=== PATIENT | male | born 1995 | race Caucasian/White ===

== ENCOUNTER → 2017-07-22 | Outpatient (REF) | payer MEDICARE ==
[~2017-07-22] MED LIST: ACET-1966 PO; AMLO-96 PO; AMLO-99 PO; CALC-521 PO; CALC667T3 PO; CHOL500025 PO; CIN30PT PO; CYCL25CA8 PO; DARB40DI IJ; FOLI1CAP13 PO; FURO-47 PO; LISI-362 PO; LISI-374 PO; METO25TA93 PO; MULT-40; OMEP40CA48 PO; PRED-1 PO; SULF-198 PO; [UNRECOGNIZED DRUG - CODE] IJ
== END ==
LOC: ZZSENDIN 15:36
PROVIDERS: ATTEND Internal Medicine Nephrology
DX: R88.0 Cloudy (hemodialysis) (peritoneal) dialysis effluent (principal)
CPT/HCPCS: 87071; 87073; 87205; 89050

== ENCOUNTER 2017-09-10 13:58 | Emergency (ER) | payer MEDICARE ==
[2017-09-10] MEDS ORDERED: SEVE800T16 PO (14:25)
[2017-09-10] MEDS ORDERED: CARV25TA78 PO (14:25)
[2017-09-10] MEDS ORDERED: CYCL10TA29 PO (14:25)
[2017-09-10] MEDS ORDERED: CAL25 FT (14:25)
--- NOTE | 2017-09-10 14:47 | ER Report ---
History and Physical Time Seen By MD: 14:35 Hx. of Stated Complaint: PATIENT STATES THAT SUDDENLY TODAY HE STARTED FEELING NAUSEA AND LIGHT HEADED HPI/ROS CHIEF COMPLAINT: Lightheadedness, shortness of breath HISTORY OF PRESENT ILLNESS: 21-year-old male patient presents to emergency room with complaint of lightheadedness and shortness of breath. Patient states that he was coming back in town with his mother when he started not feeling well. His mother states he became very pale. He states that he was having a hard time getting a breath in. He states that he felt like he was going to pass out. He denies having any vomiting however he states that he has been nauseated. Patient states he is not taking any medication for this. Patient has a history of renal failure and mother wanted him evaluated as a result of these problems. Patient states he is feeling improved at this time. REVIEW OF SYSTEMS: Respiratory: As noted above. Cardiovascular: No chest pain, no palpitations. Gastrointestinal: As noted above Musculoskeletal: No back pain. Allergies: Coded Allergies: cyclobenzaprine (Verified Allergy, Severe, ANAPHALATIC, 09/10/17) Home Meds Reported Medications Sevelamer Carbonate (RENVELA) 800 Mg Tablet, 800 MG PO BID 09/10/17 Cyclobenzaprine Hcl (CYCLOBENZAPRINE HCL) 10 Mg Tablet, 5 MG PO TID, #9 TAB 09/10/17 Calcitriol (CALCITRIOL) 0.25 Mcg Cap, 0.25 MCG FT, CAP 09/10/17 Carvedilol (CARVEDILOL) 25 Mg Tablet, 25 MG PO BID, #10 TAB 09/10/17 Cinacalcet Hcl (SENSIPAR) 30 Mg Tablet, 30 MG PO DAILY 05/12/17 Amlodipine Besylate (AMLODIPINE BESYLATE) 10 Mg Tablet, 10 MG PO QHS, TAB 05/10/17 Lisinopril (LISINOPRIL) 10 Mg Tablet, 20 MG PO BID, TAB 03/10/17 Prednisone 10 Mg Tab (PREDNISONE 10 MG TAB) 10 Mg Tablet, 5 MG PO QDAY, TAB 12/23/16 Omeprazole (OMEPRAZOLE) 40 Mg Capsule.dr, 40 MG PO QDAY, CAP 12/23/16 Folic Acid/Vitamin B Comp W-C (NEPHROCAPS SOFTGEL) 1 Mg Capsule, 1 MG PO, CAPSULE 12/23/16 Cyclosporine, Modified (GENGRAF) 25 Mg Capsule, 75 MG PO BID, CAPSULE 12/23/16 Furosemide (FUROSEMIDE) 40 Mg Tablet, 2 TAB PO QDAY, TAB 12/23/16 Discontinued Reported Medications Calcium Acetate (CALCIUM ACETATE) 667 Mg Tablet, 667 MG PO TIDCF 04/07/17 Metoprolol Tartrate (METOPROLOL TARTRATE) 25 Mg Tablet, 25 MG PO BID, TAB 02/15/17 Sulfamethoxazole/Trimet 800-160 Mg Tab (BACTRIM DS TABLET) 1 Each Tablet, 0.5 TAB PO Q12H, TAB 12/23/16 Past Medical/Surgical History Patient has a past medical history of hypertension, reflux, renal failure, peritoneal dialysis. Patient has a surgical history of kidney transplants 2, tendon lengthening in both feet, left hip replacement. Reviewed Nurses Notes: Yes Hx Substance Use Disorder: No Hx Alcohol Use: No Constitutional Vital Sign - Last 24 Hours 09/10/17 09/10/17 09/10/17 09/10/17 14:09 14:09 14:28 14:30 Temp 98.2 Pulse 81 85 Resp 18 B/P (MAP) 125/80 (95) 125/80 131/82 (98) Pulse Ox 96 99 O2 Delivery Room Air 09/10/17 09/10/17 09/10/17 09/10/17 14:58 15:00 15:28 16:00 Pulse 89 85 B/P (MAP) 136/83 (100) 139/92 (108) Pulse Ox 95 09/10/17 16:03 Pulse 93 Pulse Ox 96 Physical Exam General Appearance: The patient is alert, has no immediate need for airway protection and no current signs of toxicity. Respiratory: Chest is non tender, lungs are coarse in the right lower lobe to auscultation. Cardiac: regular rate and rhythm Gastrointestinal: Abdomen is soft and non tender, no masses, bowel sounds normal. Musculoskeletal: Neck: Neck is supple and non tender. Extremities have full range of motion and are non tender. Skin: No rashes or lesions. DIFFERENTIAL DIAGNOSIS: After history and physical exam differential diagnosis was considered for pneumonia, bronchitis, upper respiratory infection, dehydration Medical Decision Making Data Points Result Diagram: 09/10/17 1512 09/10/17 1512 Laboratory Hematology Test 09/10/17 15:12 Red Blood Count 3.31 M/uL (4.00-5.60) Mean Corpuscular Volume 84.3 fL (80.0-96.0) Mean Corpuscular Hemoglobin 29.6 pg (26.0-33.0) Mean Corpuscular Hemoglobin Concent 35.2 g/dL (32.0-36.0) Red Cell Distribution Width 12.9 % (11.5-14.5) Mean Platelet Volume 7.1 fL (7.2-11.1) Neutrophils (%) (Auto) 79.0 % (39.4-72.5) Lymphocytes (%) (Auto) 11.2 % (17.6-49.6) Monocytes (%) (Auto) 7.4 % (4.1-12.4) Eosinophils (%) (Auto) 2.1 % (0.4-6.7) Basophils (%) (Auto) 0.3 % (0.3-1.4) Nucleated RBC Relative Count (auto) 0.0 /100WBC Neutrophils # (Auto) 9.3 K/uL (2.0-7.4) Lymphocytes # (Auto) 1.3 K/uL (1.3-3.6) Monocytes # (Auto) 0.9 K/uL (0.3-1.0) Eosinophils # (Auto) 0.2 K/uL (0.0-0.5) Basophils # (Auto) 0.0 K/uL (0.0-0.1) Nucleated RBC Absolute Count (auto) 0.00 K/uL Sodium Level 141 mmol/L (137-145) Potassium Level 3.9 mmol/L (3.5-5.0) Chloride Level 99 mmol/L (98-107) Carbon Dioxide Level 26 mmol/L (22-30) Blood Urea Nitrogen 51 mg/dl (9-21) Creatinine 8.20 mg/dl (0.66-1.25) Glomerular Filtration Rate Calc 8.2 Random Glucose 87 mg/dl (75-110) Calcium Level 8.2 mg/dl (8.4-10.2) Total Bilirubin 0.5 mg/dl (0.2-1.3) Aspartate Amino Transf (AST/SGOT) 17 U/L (0-35) Alanine Aminotransferase (ALT/SGPT) 26 U/L (0-56) Alkaline Phosphatase 176 U/L (0-126) Troponin I < 0.012 ng/ml Total Protein 7.0 gm/dl (6.3-8.2) Albumin 3.8 g/dl (3.5-5.0) Chemistry Test 09/10/17 15:12 White Blood Count 11.7 k/uL (4.5-11.0) Red Blood Count 3.31 M/uL (4.00-5.60) Hemoglobin 9.8 g/dL (14.0-18.0) Hematocrit 27.9 % (42.0-52.0) Mean Corpuscular Volume 84.3 fL (80.0-96.0) Mean Corpuscular Hemoglobin 29.6 pg (26.0-33.0) Mean Corpuscular Hemoglobin Concent 35.2 g/dL (32.0-36.0) Red Cell Distribution Width 12.9 % (11.5-14.5) Platelet Count 258 K/uL (150-450) Mean Platelet Volume 7.1 fL (7.2-11.1) Neutrophils (%) (Auto) 79.0 % (39.4-72.5) Lymphocytes (%) (Auto) 11.2 % (17.6-49.6) Monocytes (%) (Auto) 7.4 % (4.1-12.4) Eosinophils (%) (Auto) 2.1 % (0.4-6.7) Basophils (%) (Auto) 0.3 % (0.3-1.4) Nucleated RBC Relative Count (auto) 0.0 /100WBC Neutrophils # (Auto) 9.3 K/uL (2.0-7.4) Lymphocytes # (Auto) 1.3 K/uL (1.3-3.6) Monocytes # (Auto) 0.9 K/uL (0.3-1.0) Eosinophils # (Auto) 0.2 K/uL (0.0-0.5) Basophils # (Auto) 0.0 K/uL (0.0-0.1) Nucleated RBC Absolute Count (auto) 0.00 K/uL Glomerular Filtration Rate Calc 8.2 Calcium Level 8.2 mg/dl (8.4-10.2) Total Bilirubin 0.5 mg/dl (0.2-1.3) Aspartate Amino Transf (AST/SGOT) 17 U/L (0-35) Alanine Aminotransferase (ALT/SGPT) 26 U/L (0-56) Alkaline Phosphatase 176 U/L (0-126) Troponin I < 0.012 ng/ml Total Protein 7.0 gm/dl (6.3-8.2) Albumin 3.8 g/dl (3.5-5.0) EKG/Imaging EKG Interpretation 12 lead EKG: Rhythm: normal sinus rhythm with a ventricular rate of 83 bpm Cougar: normal QRS: normal ST segments: normal Imaging Exam type: CHEST PA AND LAT History: shortness of breath Comparison: February 22, 2017. Findings: The lungs appear free of acute effusions infiltrates or edema. There is no evidence of a pneumothorax or pneumomediastinum. Cardiac silhouette is normal in size. IMPRESSION: 1. No acute cardiopulmonary process is seen Report Dictated By: Olga Heredia MD at 09/10/2017 3:50 PM Report E-Signed By: Olga Heredia MD at 09/10/2017 3:51 PM ED Course/Re-evaluation ED Course Patient was admitted to an exam room, history and physical were obtained. Differential diagnoses were considered. On examination patient had some rhonchi in the right lower lobe. A CBC, CMP, chest x-ray were done. The lab results were unremarkable except the patient did have a creatinine of 8 with a GFR of 8 as well. Patient has known kidney disease I believe that secondary to that. Patient does have a fluid restriction of 3200 cc per day. Today he is only had 240 cc and has urinated as well. Looking at his BUN which was up from 31 2 months ago to 55 today I believe the patient is slightly dehydrated. I do believe that could be contributing to the patient's lightheadedness. I discussed this with the patient and his mother. The chest x-ray was unremarkable and we discussed the results with him. We'll go ahead and discharge him home. I believe he likely has upper respiratory infection which is causing the rhonchi in the right lower lobe. We will go ahead and treat that conservatively with rest and fluid. I would like him to be closer to his fluid restriction every day. Patient and his mother verbalized understanding and agreement with plan. Decision to Disposition Date: Sep 10, 2017 Decision to Disposition Time: 16:09 Depart Departure Latest Vital Signs Vital Signs Date Time Temp Pulse Resp B/P (MAP) Pulse Ox O2 Delivery O2 Flow Rate FiO2 09/10/17 16:03 93 96 09/10/17 16:00 139/92 (108) 09/10/17 14:09 98.2 18 Room Air Impression: Primary Impression: Upper respiratory infection Additional Impression: Dehydration Condition: Improved Disposition: HOME OR SELF-CARE Patient Instructions: Dehydration (ED) Additional Instructions: Get plenty of rest. Try to stay closer to the 3200cc fluid restriction, as we talked about today you have drank considerably less than that. Continue with normal medications. Return to the ER if condition worsens. Follow up with your primary care provider in the next 2 weeks. Problem Qualifiers Primary Impression: Upper respiratory infection URI type: unspecified viral URI Qualified Codes: J06.9 - Acute upper respiratory infection, unspecified JEAN BAKER Sep 10, 2017 14:47
[2017-09-10 15:23] LABS: PLATELET COUNT, AUTOMATED 258 K/uL (150-450)
--- NOTE | 2017-09-10 15:26 | EKG ---
FACILITY: [facility] [place] PATIENT NAME: JEAN PIERRE STRONG : [id number] MR: [id number] V: [id number] EXAM DATE: ORDERING PHYSICIAN: JEAN BAKER TECHNOLOGIST: EBONI Hall Reason : SOB Blood Pressure : / mmHG Vent. Rate : 083 BPM Atrial Rate : 083 BPM P-R Int : 152 ms QRS Dur : 088 ms QT Int : 396 ms P-R-T Axes : 074 080 086 degrees QTc Int : 465 ms Normal sinus rhythm Normal ECG When compared with ECG of 25-FEB-2017 14:07, No significant change was found Confirmed by TOMAS SHEIKH ([id number]) on 09/10/2017 11:24:35 PM Referred By: JEAN Confirmed By:TOMAS SHEIKH
--- NOTE | 2017-09-10 15:55 | RADIOLOGY IMAGING REPORT ---
FACILITY: [facility] PATIENT NAME: Paresh Barrera : 1995 MR: [id number] V: [id number] EXAM DATE: ORDERING PHYSICIAN: JEAN BAKER TECHNOLOGIST: Location: [facility] Patient: Paresh Barrera : 1995 Visit/Account:[id number] Date of Sevice: 09/10/2017 Exam type: CHEST PA AND LAT History: shortness of breath Comparison: February 22, 2017. Findings: The lungs appear free of acute effusions infiltrates or edema. There is no evidence of a pneumothora x or pneumomediastinum. Cardiac silhouette is normal in size. IMPRESSION: 1. No acute cardiopulmonary process is seen Report Dictated By: Olga Heredia MD at 09/10/2017 3:50 PM Report E-Signed By: Olga Heredia MD at 09/10/2017 3:51 PM [id number]
[2017-09-10 16:00] VITALS: BP 139/92
== END 2017-09-10 16:17 | disposition home or self-care (01) ==
LOC: ER 13:58
DX: J06.9 Acute upper respiratory infection, unspecified (principal); E86.0 Dehydration
CPT/HCPCS: 36415; 71046; 82040; 82247; 82310; 82374; 82435; 82565; 82947; 84075; 84132; 84155; 84295; 84450; 84460; 84484; 84520; 85025; 93005; 99283

== ENCOUNTER → 2017-09-23 | Outpatient (REF) | payer MEDICARE ==
[~2017-09-23] MED LIST changes: +CAL25 FT; +CARV25TA78 PO; +CYCL10TA29 PO; +SEVE800T16 PO
[2017-09-23 13:18] LABS: PLATELET COUNT, AUTOMATED 342 K/uL (150-450)
== END ==
PROVIDERS: ATTEND Nurse Practitioner Family
DX: R50.9 Fever, unspecified (principal)
CPT/HCPCS: 82040; 82247; 82310; 82374; 82435; 82565; 82947; 84075; 84132; 84155; 84295; 84450; 84460; 84520; 85025

== ENCOUNTER → 2017-09-23 | Outpatient (REF) | payer MEDICARE | LOC: ZZSENDIN 20:54 | PROVIDERS: ATTEND Internal Medicine | DX: R50.9 Fever, unspecified (principal) | CPT/HCPCS: 87071; 87205; 89050 ==

== ENCOUNTER 2018-01-11 03:06 | Emergency (ER) | payer MEDICARE ==
--- NOTE | 2018-01-11 03:10 | ER Report ---
History and Physical Time Seen By MD: 03:09 HPI/ROS CHIEF COMPLAINT: Fever, sore throat, vomiting, diarrhea HISTORY OF PRESENT ILLNESS: 22-year-old male with a history of chronic renal failure status post renal transplant failure 2. Patient's currently on peritoneal dialysis. He began feeling ill yesterday morning with a sore throat , chills and fever. His mom brought him in tonight with vomiting and diarrhea on top of his sore throat. He appears very dehydrated. Mom's been doing his peritoneal dialysis catheters. She states the fluid has not been cloudy or noted color change. Patient notes some shortness of breath, but no sputum production or cough. Patient and his mother deny exposure to ill contacts or recent antibiotic use. REVIEW OF SYSTEMS: Respiratory: No cough, no dyspnea. Cardiovascular: No chest pain, no palpitations. Gastrointestinal: As above Musculoskeletal: No back pain. Allergies: Coded Allergies: cycloserine (Verified Allergy, Severe, anaphlaxsis, 01/11/18) Home Meds Active Scripts Ondansetron (ZOFRAN ODT) 4 Mg Tab.rapdis, 4 MG PO every 6 hours Y for NAUSEA/ VOMITING, #15 TAB TAKE 1 TABLET BY MOUTH EVERY 12 HOURS Prov:KVNG DAS DO 01/11/18 Amoxicillin/Potassium Clav (AMOX TR-K CLV 400-57/5 SUSP) 400 Mg/5 Ml Susp.recon , 800 MG PO Q12H for Strep pharyngitis, #200 ML Prov:KVNG DAS DO 01/11/18 Reported Medications Sevelamer Carbonate (RENVELA) 800 Mg Tablet, 800 MG PO BID 09/10/17 Cyclobenzaprine Hcl (CYCLOBENZAPRINE HCL) 10 Mg Tablet, 5 MG PO TID, #9 TAB 09/10/17 Calcitriol (CALCITRIOL) 0.25 Mcg Cap, 0.25 MCG FT, CAP 09/10/17 Carvedilol (CARVEDILOL) 25 Mg Tablet, 25 MG PO BID, #10 TAB 09/10/17 Cinacalcet Hcl (SENSIPAR) 30 Mg Tablet, 30 MG PO DAILY 05/12/17 Amlodipine Besylate (AMLODIPINE BESYLATE) 10 Mg Tablet, 10 MG PO QHS, TAB 05/10/17 Lisinopril (LISINOPRIL) 10 Mg Tablet, 20 MG PO BID, TAB 03/10/17 Prednisone 10 Mg Tab (PREDNISONE 10 MG TAB) 10 Mg Tablet, 5 MG PO QDAY, TAB 12/23/16 Omeprazole (OMEPRAZOLE) 40 Mg Capsule.dr, 40 MG PO QDAY, CAP 12/23/16 Folic Acid/Vitamin B Comp W-C (NEPHROCAPS SOFTGEL) 1 Mg Capsule, 1 MG PO, CAPSULE 12/23/16 Cyclosporine, Modified (GENGRAF) 25 Mg Capsule, 75 MG PO BID, CAPSULE 12/23/16 Furosemide (FUROSEMIDE) 40 Mg Tablet, 2 TAB PO QDAY, TAB 12/23/16 Reviewed Nurses Notes: Yes Old Medical Records Reviewed: Yes Hx Substance Use Disorder: No Hx Alcohol Use: No Constitutional Vital Sign - Last 24 Hours 01/11/18 01/11/18 01/11/18 01/11/18 03:10 03:36 03:51 04:00 Temp 100.5 Pulse 111 ??? 108 Resp 24 27 B/P (MAP) 128/86 130/80 (97) Pulse Ox 92 94 93 O2 Delivery Room Air 01/11/18 01/11/18 01/11/18 01/11/18 04:06 04:21 04:30 04:36 Pulse 110 112 113 Resp 10 10 9 B/P (MAP) 129/82 (98) Pulse Ox 93 94 90 01/11/18 01/11/18 01/11/18 01/11/18 04:51 05:00 05:05 05:10 Pulse 118 114 113 Resp 16 27 B/P (MAP) 138/87 (104) Pulse Ox 94 96 01/11/18 05:22 Temp 100.1 Physical Exam General Appearance: The patient is alert, has no immediate need for airway protection and no current signs of toxicity. Vital signs stable, 100.5, pulse ox normal HEENT: Pupils equal and round no injection. TMs normal, oropharynx with moderate erythema, no exudate, mucous membranes are dry Respiratory: Chest is non tender, lungs are clear to auscultation. No wheezing or rails Cardiac: regular rate and rhythm, no murmur Gastrointestinal: Abdomen is soft and non tender, no masses, bowel sounds normal. Musculoskeletal: Neck: Neck is supple and non tender. Extremities have full range of motion and are non tender. Skin: No rashes or lesions. DIFFERENTIAL DIAGNOSIS: After history and physical exam differential diagnosis was considered for adult fever including but not limited to viral syndromes including influenza, urinary tract infection, pneumonia and sepsis. Medical Decision Making Data Points Result Diagram: 01/11/18 0323 01/11/18 0323 Laboratory Hematology Test 01/11/18 03:23 Red Blood Count 3.36 M/uL (4.00-5.60) Mean Corpuscular Volume 83.3 fL (80.0-96.0) Mean Corpuscular Hemoglobin 29.2 pg (26.0-33.0) Mean Corpuscular Hemoglobin Concent 35.1 g/dL (32.0-36.0) Red Cell Distribution Width 15.2 % (11.5-14.5) Mean Platelet Volume 6.7 fL (7.2-11.1) Neutrophils (%) (Auto) % (39.4-72.5) Lymphocytes (%) (Auto) % (17.6-49.6) Monocytes (%) (Auto) % (4.1-12.4) Eosinophils (%) (Auto) % (0.4-6.7) Basophils (%) (Auto) % (0.3-1.4) Nucleated RBC Relative Count (auto) /100WBC Neutrophils # (Auto) K/uL (2.0-7.4) Lymphocytes # (Auto) K/uL (1.3-3.6) Monocytes # (Auto) K/uL (0.3-1.0) Eosinophils # (Auto) K/uL (0.0-0.5) Basophils # (Auto) K/uL (0.0-0.1) Nucleated RBC Absolute Count (auto) K/uL Neutrophils % (Manual) 19 % (39.4-72.5) Band Neutrophils % 72 % Lymphocytes % (Manual) 2 % (17.6-49.6) Monocytes % (Manual) 5 % (4.1-12.4) Eosinophils % (Manual) 1 % (0.4-6.7) Basophils % (Manual) 0 % (0.3-1.4) Metamyelocytes % 1 % Differential Comment Polychromasia 1+ Peripheral Blood Smear Yes Y/N Erythrocyte Sedimentation Rate 12 mm/HOUR (0-15) Sodium Level 139 mmol/L (137-145) Potassium Level 3.5 mmol/L (3.5-5.0) Chloride Level 98 mmol/L (98-107) Carbon Dioxide Level 23 mmol/L (22-30) Blood Urea Nitrogen 54 mg/dl (9-21) Creatinine 10.40 mg/dl (0.66-1.25) Glomerular Filtration Rate Calc 6.2 Random Glucose 87 mg/dl (75-110) Lactate 0.7 mmol/L (0.7-2.1) Calcium Level 8.5 mg/dl (8.4-10.2) Total Bilirubin 0.8 mg/dl (0.2-1.3) Aspartate Amino Transf (AST/SGOT) 15 U/L (0-35) Alanine Aminotransferase (ALT/SGPT) 23 U/L (0-56) Alkaline Phosphatase 81 U/L (0-126) C-Reactive Protein 4.7 mg/dl (<1.0) Total Protein 6.0 g/dl (6.3-8.2) Albumin 3.4 g/dl (3.5-5.0) Group A Streptococcus Screen Positive (NEGATIVE) Chemistry Test 01/11/18 03:23 White Blood Count 22.4 k/uL (4.5-11.0) Red Blood Count 3.36 M/uL (4.00-5.60) Hemoglobin 9.8 g/dL (14.0-18.0) Hematocrit 28.0 % (42.0-52.0) Mean Corpuscular Volume 83.3 fL (80.0-96.0) Mean Corpuscular Hemoglobin 29.2 pg (26.0-33.0) Mean Corpuscular Hemoglobin Concent 35.1 g/dL (32.0-36.0) Red Cell Distribution Width 15.2 % (11.5-14.5) Platelet Count 295 K/uL (150-450) Mean Platelet Volume 6.7 fL (7.2-11.1) Neutrophils (%) (Auto) % (39.4-72.5) Lymphocytes (%) (Auto) % (17.6-49.6) Monocytes (%) (Auto) % (4.1-12.4) Eosinophils (%) (Auto) % (0.4-6.7) Basophils (%) (Auto) % (0.3-1.4) Nucleated RBC Relative Count (auto) /100WBC Neutrophils # (Auto) K/uL (2.0-7.4) Lymphocytes # (Auto) K/uL (1.3-3.6) Monocytes # (Auto) K/uL (0.3-1.0) Eosinophils # (Auto) K/uL (0.0-0.5) Basophils # (Auto) K/uL (0.0-0.1) Nucleated RBC Absolute Count (auto) K/uL Neutrophils % (Manual) 19 % (39.4-72.5) Band Neutrophils % 72 % Lymphocytes % (Manual) 2 % (17.6-49.6) Monocytes % (Manual) 5 % (4.1-12.4) Eosinophils % (Manual) 1 % (0.4-6.7) Basophils % (Manual) 0 % (0.3-1.4) Metamyelocytes % 1 % Differential Comment Polychromasia 1+ Peripheral Blood Smear Yes Y/N Erythrocyte Sedimentation Rate 12 mm/HOUR (0-15) Glomerular Filtration Rate Calc 6.2 Lactate 0.7 mmol/L (0.7-2.1) Calcium Level 8.5 mg/dl (8.4-10.2) Total Bilirubin 0.8 mg/dl (0.2-1.3) Aspartate Amino Transf (AST/SGOT) 15 U/L (0-35) Alanine Aminotransferase (ALT/SGPT) 23 U/L (0-56) Alkaline Phosphatase 81 U/L (0-126) C-Reactive Protein 4.7 mg/dl (<1.0) Total Protein 6.0 g/dl (6.3-8.2) Albumin 3.4 g/dl (3.5-5.0) Group A Streptococcus Screen Positive (NEGATIVE) Microbiology Microbiology Date/Time Source Procedure Growth Status 01/11/18 04:08 Blood Peripheral Draw Blood Culture - Preliminary NO GROWTH SO FAR, SET LATE. REINCUBATED Resulted 01/11/18 03:23 Blood Peripheral Draw Blood Culture - Preliminary NO GROWTH SO FAR, SET LATE. REINCUBATED Resulted ED Course/Re-evaluation Clinical Indication for ER IV: Hydration, IV Access ED Course Patient was admitted to an examination room. H&P was done. The differential diagnosis was considered. On clinical examination. Patient has a benign nonsurgical abdomen. His catheter site is without erythema or discharge. He's had a sore throat. His rapid strep is positive. His white blood cell counts 22 ,000 with 72, bands. He's pancultured, but is unable to produce urine. He does still make some urine. We are unable to obtain peritoneal fluid. I do not think he has peritoneal infection. He'll be treated with Augmentin for strep pharyngitis. He is started on Rocephin 1 g initially. Mom and patient are advised to follow-up with their doc if unimproved in 2-3 days. They're cautioned return to the ER for any worsening Decision to Disposition Date: Jan 11, 2018 Decision to Disposition Time: 04:44 Depart Departure Latest Vital Signs Vital Signs Date Time Temp Pulse Resp B/P (MAP) Pulse Ox O2 Delivery O2 Flow Rate FiO2 01/11/18 05:22 100.1 01/11/18 05:10 113 01/11/18 05:05 27 96 01/11/18 05:00 138/87 (104) 01/11/18 03:10 Room Air Impression: Primary Impression: Strep pharyngitis Additional Impressions: Vomiting and diarrhea Dehydration Renal failure treated with peritoneal dialysis Condition: Improved Disposition: HOME OR SELF-CARE New Scripts Ondansetron (ZOFRAN ODT) 4 Mg Tab.rapdis 4 MG PO every 6 hours Y for NAUSEA/VOMITING, #15 TAB TAKE 1 TABLET BY MOUTH EVERY 12 HOURS Prov: KVNG DAS DO 01/11/18 Amoxicillin/Potassium Clav (AMOX TR-K CLV 400-57/5 SUSP) 400 Mg/5 Ml Susp.recon 800 MG PO Q12H for Strep pharyngitis, #200 ML Prov: KVNG DAS DO 01/11/18 Patient Instructions: Strep Throat (ED) Additional Instructions: Follow-up with your doctors if unimproved in 2-3 days Turn to the ER for any worsening Problem Qualifiers KVNG DAS DO Jan 11, 2018 03:10
[2018-01-11] MEDS ORDERED: NS(*) 0.9% 1000 ML BAG 1,000 ML IV ONE (03:18)
[2018-01-11] MEDS ORDERED: ONDANSETRON 4 MG/2 ML VIAL IVP ONE (03:20)
[2018-01-11 03:39] LABS: PLATELET COUNT, AUTOMATED 295 K/uL (150-450)
--- NOTE | 2018-01-11 03:52 | RADIOLOGY IMAGING REPORT ---
FACILITY: [facility] PATIENT NAME: Paresh Barrera : 1995 MR: [id number] V: [id number] EXAM DATE: ORDERING PHYSICIAN: KVNG DAS TECHNOLOGIST: Location: [facility] [place] Patient: Paresh Barrera : 1995 Visit/Account:[id number] Date of Sevice: 01/11/2018 AP CHEST 01/11/2018 3:18 AM. INDICATION: FEVER COMPARISON: 09/10/2017. FINDINGS: Lungs are well-expanded. There is no consolidation. No pleural effusion or pneumothorax. Heart size i s normal. Mild rightward curvature of the thoracic spine. IMPRESSION: No acute abnormality.. Report Dictated By: Maxwell Nayak MD at 01/11/2018 3:47 AM Report E-Signed By: Maxwell Nayak MD at 01/11/2018 3:49 AM WSN:[id number]
[2018-01-11] MEDS ORDERED: cefTRIAXone(*) 1 GM VIAL 1 GM in NS(*) 0.9% 100 ML ADDVANT BAG 100 ML IVPB ONE (04:35)
[2018-01-11] MEDS ORDERED: ONDA4TAB PO (04:49)
[2018-01-11] MEDS ORDERED: AMOX400S72 PO (04:49)
[2018-01-11] MEDS ORDERED: NS(*) 0.9% 500 ML BAG 500 ML IV ONE (04:50)
[2018-01-11 05:00] VITALS: BP 138/87
== END 2018-01-11 05:27 | disposition home or self-care (01) ==
LOC: ER 03:20
DX: J02.0 Streptococcal pharyngitis (principal); E86.0 Dehydration; R11.10 Vomiting, unspecified; R19.7 Diarrhea, unspecified; N19 Unspecified kidney failure
CPT/HCPCS: 71045; 83605; 85025; 85651; 86140; 87040; 87081; 87880; 96365; 96375; 99283; J0696; J2405; J7030; J7040; J7050; 82040; 82247; 82310; 82374; 82435; 82565; 82947; 84075; 84132; 84155; 84295; 84450; 84460; 84520

== ENCOUNTER → 2018-02-08 | Outpatient (REF) | payer MEDICARE, MEDICAID ==
[~2018-02-08] MED LIST changes: +AMOX400S72 PO; +ONDA4TAB PO
[2018-02-08 13:29] LABS: PLATELET COUNT, AUTOMATED 379 K/uL (150-450)
== END ==
LOC: ZZSENDIN 13:18
PROVIDERS: ATTEND Family Medicine
DX: N18.5 Chronic kidney disease, stage 5 (principal)
CPT/HCPCS: 85025

== ENCOUNTER → 2018-02-08 | Outpatient (CLI) | payer MEDICARE, MEDICAID | LOC: LAB 21:24 | PROVIDERS: ATTEND Internal Medicine | DX: R10.9 Unspecified abdominal pain (principal) | CPT/HCPCS: 87071; 87073; 87205; 89050 ==

== ENCOUNTER → 2018-02-09 | Outpatient (REF) | payer MEDICARE, MEDICAID ==
[2018-02-09 14:46] LABS: PLATELET COUNT, AUTOMATED 332 K/uL (150-450)
== END ==
LOC: ZZSENDIN 14:34
PROVIDERS: ATTEND Physician Assistant Medical
DX: N18.5 Chronic kidney disease, stage 5 (principal)
CPT/HCPCS: 82728; 85025

== ENCOUNTER 2018-02-20 16:04 | Emergency (ER) | payer MEDICARE, MEDICAID ==
[~2018-02-20 16:04] MED LIST changes: -CAL25 FT; +CAL25 PO; +TIZA2CAP3 PO; +VANC250C11 PO
[2018-02-20] MEDS ORDERED: KETOROLAC 30 MG/ML VIAL IVP ONE (17:00)
[2018-02-20] MEDS ORDERED: NS(*) 0.9% 1000 ML BAG 1,000 ML IV ONE (17:00)
[2018-02-20 17:22] LABS: PLATELET COUNT, AUTOMATED 231 K/uL (150-450)
--- NOTE | 2018-02-20 17:59 | ER Report ---
History and Physical Time Seen By MD: 17:57 Hx. of Stated Complaint: RLQ PAIN SINCE WEDNESDAY, DENIES N/V & FEVERS, PT WAS RECENTLY IN HOSPITAL IN [place] WITH C.DIFF (AMONG MANY OTHER DIAGNOSES). HPI/ROS CHIEF COMPLAINT: Right lower quadrant abdominal pain HISTORY OF PRESENT ILLNESS: Patient is a 22-year-old male here with complaints of right lower quadrant abdominal pain in the setting of peritoneal dialysis. Patient reports that since said intermittent colicky abdominal pain which has worsened over the course. Patient is a history of dystonia and a recent history of C. difficile colitis requiring hospitalization. Patient has been passing bowel movements without issue. He reports that he does not produce urine and requires peritoneal dialysis nightly. Patient is afebrile, hemodynamically stable in no acute distress. Denies recent fevers, shortness breath, chest pain, nausea, vomiting, diarrhea. Of note, patient is immune compromised on prednisone, cyclosporine, s/p renal transplant [facility] (original transplant was performed in [place]). REVIEW OF SYSTEMS: Constitutional: No fever, no chills. Eyes: No discharge. ENT: No sore throat. Cardiovascular: No chest pain, no palpitations. Respiratory: No cough, no shortness of breath. Gastrointestinal: + RLQ abdominal pain, no vomiting. Genitourinary: No hematuria. Musculoskeletal: No back pain. Skin: No rashes. Neurological: No headache. Allergies: Coded Allergies: cycloserine (Verified Allergy, Severe, anaphlaxsis, 02/20/18) ceftazidime (Unverified Allergy, Mild, Rash, 02/20/18) Uncoded Allergies: live vaccines (Allergy, Unknown, 02/16/18) Home Meds Active Scripts Vancomycin Hcl (VANCOMYCIN HCL) 250 Mg Capsule, 250 MG PO QID for 14 Days, #56 CAPSULE Prov:GRAY SMITH DO 02/20/18 Ondansetron (ZOFRAN ODT) 4 Mg Tab.rapdis, 4 MG PO every 6 hours Y for NAUSEA/ VOMITING, #15 TAB TAKE 1 TABLET BY MOUTH EVERY 12 HOURS Prov:KVNG DAS DO 01/11/18 Reported Medications Tizanidine Hcl (TIZANIDINE HCL) 2 Mg Capsule, 2 MG PO Q6H Y for prn, CAPSULE 02/16/18 Vancomycin HCl (Vancocin HCl) 250 Mg Capsule, 500 MG PO EVERY 3RD DAY 02/16/18 Sevelamer Carbonate (RENVELA) 800 Mg Tablet, 2400 MG PO TID 09/10/17 Calcitriol (CALCITRIOL) 0.25 Mcg Cap, 0.25 MCG PO BID, CAP 09/10/17 Prednisone 10 Mg Tab (PREDNISONE 10 MG TAB) 10 Mg Tablet, 5 MG PO QDAY, TAB 12/23/16 Omeprazole (OMEPRAZOLE) 40 Mg Capsule.dr, 40 MG PO QDAY, CAP 12/23/16 Folic Acid/Vitamin B Comp W-C (NEPHROCAPS SOFTGEL) 1 Mg Capsule, 1 MG PO, CAPSULE 12/23/16 Cyclosporine, Modified (GENGRAF) 25 Mg Capsule, 75 MG PO BID, CAPSULE 12/23/16 Discontinued Reported Medications Cyclobenzaprine Hcl (CYCLOBENZAPRINE HCL) 10 Mg Tablet, 5 MG PO TID, #9 TAB 09/10/17 Carvedilol (CARVEDILOL) 25 Mg Tablet, 25 MG PO BID, #10 TAB 09/10/17 Cinacalcet Hcl (SENSIPAR) 30 Mg Tablet, 30 MG PO DAILY 05/12/17 Amlodipine Besylate (AMLODIPINE BESYLATE) 10 Mg Tablet, 10 MG PO QHS, TAB 05/10/17 Lisinopril (LISINOPRIL) 10 Mg Tablet, 20 MG PO BID, TAB 03/10/17 Furosemide (FUROSEMIDE) 40 Mg Tablet, 2 TAB PO QDAY, TAB 12/23/16 Discontinued Scripts Amoxicillin/Potassium Clav (AMOX TR-K CLV 400-57/5 SUSP) 400 Mg/5 Ml Susp.recon , 800 MG PO Q12H for Strep pharyngitis, #200 ML Prov:KVNG DAS DO 01/11/18 Smoking Status: Never Smoker Hx Substance Use Disorder: No Hx Alcohol Use: No Constitutional Vital Sign - Last 24 Hours 02/20/18 02/20/18 02/20/18 02/20/18 16:15 16:15 16:30 16:45 Temp 98.9 Pulse 120 112 107 Resp 12 B/P (MAP) 148/103 (118) 148/103 138/100 (113) Pulse Ox 91 89 94 O2 Delivery Room Air 02/20/18 02/20/18 02/20/18 02/20/18 17:00 17:15 17:30 18:00 Pulse 122 145 110 114 B/P (MAP) 134/99 (111) 155/104 (121) 153/106 (122) Pulse Ox 94 98 88 91 02/20/18 02/20/18 02/20/18 02/20/18 18:15 18:30 18:45 19:00 Pulse 116 140 121 119 B/P (MAP) 149/119 (129) 141/107 (118) Pulse Ox 91 88 92 91 02/20/18 02/20/18 02/20/18 02/20/18 19:15 19:30 19:45 20:00 Pulse 114 116 117 120 B/P (MAP) 151/107 (122) 158/109 (125) Pulse Ox 94 92 92 93 02/20/18 02/20/18 02/20/18 02/20/18 20:15 20:30 20:45 20:53 Pulse 123 119 117 B/P (MAP) 162/104 (123) 158/96 (116) Pulse Ox 92 90 91 Intake and Output 02/20/18 02/20/18 02/21/18 15:00 23:00 07:00 Intake Total 1100 ml Balance 1100 ml Physical Exam General Appearance: The patient is alert, has no immediate need for airway protection and no signs of toxicity. No acute distress Eyes: Pupils equal and round no pallor or injection. ENT, Mouth: Mucous membranes are moist. Respiratory: There are no retractions, lungs are clear to auscultation. Cardiovascular: Regular rate and rhythm. Gastrointestinal: Abdomen is soft and + TTP RLQ, no masses, bowel sounds normal. Neurological: No focal neurological deficits Skin: Warm and dry, no rashes. Musculoskeletal: Neck is supple non tender. Extremities are nontender, nonswollen and have full range of motion. DIFFERENTIAL DIAGNOSIS: After history and physical exam differential diagnosis was considered for abdominal pain including but not limited to appendicitis, cholecystitis, gastritis and urinary tract infection, colitis, perforation Medical Decision Making Data Points Result Diagram: 02/20/18 1715 02/20/18 1715 Laboratory Hematology Test 02/20/18 17:15 Red Blood Count 3.30 M/uL (4.00-5.60) Mean Corpuscular Volume 91.8 fL (80.0-96.0) Mean Corpuscular Hemoglobin 31.6 pg (26.0-33.0) Mean Corpuscular Hemoglobin Concent 34.5 g/dL (32.0-36.0) Red Cell Distribution Width 18.7 % (11.5-14.5) Mean Platelet Volume 6.4 fL (7.2-11.1) Neutrophils (%) (Auto) 76.7 % (39.4-72.5) Lymphocytes (%) (Auto) 12.4 % (17.6-49.6) Monocytes (%) (Auto) 7.6 % (4.1-12.4) Eosinophils (%) (Auto) 1.5 % (0.4-6.7) Basophils (%) (Auto) 1.8 % (0.3-1.4) Nucleated RBC Relative Count (auto) 0.0 /100WBC Neutrophils # (Auto) 8.6 K/uL (2.0-7.4) Lymphocytes # (Auto) 1.4 K/uL (1.3-3.6) Monocytes # (Auto) 0.9 K/uL (0.3-1.0) Eosinophils # (Auto) 0.2 K/uL (0.0-0.5) Basophils # (Auto) 0.2 K/uL (0.0-0.1) Nucleated RBC Absolute Count (auto) 0.00 K/uL Sodium Level 134 mmol/L (137-145) Potassium Level 4.4 mmol/L (3.5-5.0) Chloride Level 98 mmol/L (98-107) Carbon Dioxide Level 29 mmol/L (22-30) Blood Urea Nitrogen 55 mg/dl (9-21) Creatinine 9.70 mg/dl (0.66-1.25) Glomerular Filtration Rate Calc 6.7 Random Glucose 92 mg/dl (75-110) Calcium Level 8.1 mg/dl (8.4-10.2) Total Bilirubin 0.4 mg/dl (0.2-1.3) Aspartate Amino Transf (AST/SGOT) 26 U/L (0-35) Alanine Aminotransferase (ALT/SGPT) 28 U/L (0-56) Alkaline Phosphatase 52 U/L (0-126) Total Protein 4.6 g/dl (6.3-8.2) Albumin 2.4 g/dl (3.5-5.0) Chemistry Test 02/20/18 17:15 White Blood Count 11.3 k/uL (4.5-11.0) Red Blood Count 3.30 M/uL (4.00-5.60) Hemoglobin 10.4 g/dL (14.0-18.0) Hematocrit 30.3 % (42.0-52.0) Mean Corpuscular Volume 91.8 fL (80.0-96.0) Mean Corpuscular Hemoglobin 31.6 pg (26.0-33.0) Mean Corpuscular Hemoglobin Concent 34.5 g/dL (32.0-36.0) Red Cell Distribution Width 18.7 % (11.5-14.5) Platelet Count 231 K/uL (150-450) Mean Platelet Volume 6.4 fL (7.2-11.1) Neutrophils (%) (Auto) 76.7 % (39.4-72.5) Lymphocytes (%) (Auto) 12.4 % (17.6-49.6) Monocytes (%) (Auto) 7.6 % (4.1-12.4) Eosinophils (%) (Auto) 1.5 % (0.4-6.7) Basophils (%) (Auto) 1.8 % (0.3-1.4) Nucleated RBC Relative Count (auto) 0.0 /100WBC Neutrophils # (Auto) 8.6 K/uL (2.0-7.4) Lymphocytes # (Auto) 1.4 K/uL (1.3-3.6) Monocytes # (Auto) 0.9 K/uL (0.3-1.0) Eosinophils # (Auto) 0.2 K/uL (0.0-0.5) Basophils # (Auto) 0.2 K/uL (0.0-0.1) Nucleated RBC Absolute Count (auto) 0.00 K/uL Glomerular Filtration Rate Calc 6.7 Calcium Level 8.1 mg/dl (8.4-10.2) Total Bilirubin 0.4 mg/dl (0.2-1.3) Aspartate Amino Transf (AST/SGOT) 26 U/L (0-35) Alanine Aminotransferase (ALT/SGPT) 28 U/L (0-56) Alkaline Phosphatase 52 U/L (0-126) Total Protein 4.6 g/dl (6.3-8.2) Albumin 2.4 g/dl (3.5-5.0) EKG/Imaging Monitor Interpretation: Normal Sinus Rhythm Imaging CT abdomen and pelvis without contrast Indication: Abdominal pain. Comparison: None Available. Technique: Axial CT images are obtained through the abdomen and pelvis. Reformatted coronal and sagittal images were reviewed. IV contrast was not administered. One of the following dose optimization techniques was utilized in the performance of this exam: automated exposure control; adjustment of the mA and/ or kV according to the patient's size; or use of an iterative reconstruction technique. Specific details can be referenced in the facility's radiology CT exam operational policy. Findings: Lower lung thao: Limited views lower lung field are unremarkable. Evaluation of the solid organs of the abdomen is limited without IV contrast. Liver: No focal parenchymal abnormality of the liver. Biliary: Gallbladder appears unremarkable as well as the intra and extra hepatic biliary system. Pancreas: Normal appearance. Spleen: Normal appearance. Adrenal glands: Unremarkable. Kidneys / retroperitoneum: Solitary right kidney shows no focal abnormality. Bowel / peritoneum / mesenteries: The cecum and ascending colon shows significant abnormal wall thickening and edema with surrounding inflammation. Sigmoid colon does show some diverticula without pericolonic inflammation. The colon shows no other focal abnormality. The small bowel shows no focal abnormality or obstruction. The stomach is unremarkable. The duodenum shows no discrete focal normality. However there are some free air adjacent to the duodenum with nondependent small amount of free air present. Small amount of ascites is present. However there is a peritoneal catheter in place. No fluid collections. Lymph node assessment: No pathologic adenopathy identified. Pelvic structures: Urinary bladder is partially decompressed and grossly normal. The remaining pelvic structures visualized within normal limits. Vessels: No significant atherosclerotic calcifications seen throughout a nonaneurysmal abdominal aorta and branches. Musculoskeletal / Body wall: No acute or aggressive osseous abnormality. IMPRESSION: 1. Small amount of free air is present in the nondependent portion with small amount of free air on the duodenum region. Unsure if this is secondary to duodenal perforation or rupture also. 2. The cecum and ascending colon show diffuse abnormal thickening and edematous changes to the wall or surrounding inflammation. This could be secondary to colitis. Cannot exclude small perforation from this area which would cause the free air. 3. Small amount of ascites. However there is a peritoneal catheter is in place. 4. Sigmoid diverticulosis without radiographic indication diverticulitis. ED Course/Re-evaluation ED Course Patient is a 22-year-old male here with complaints of right lower quadrant abdominal pain with increased bowel thickening consistent with colitis which he was recently hospitalized for the setting of immunocompromise on prednisone and cyclosporine status post renal transplant in 2000 followed by [facility]. Patient is a peritoneal dialysis dependent receiving his treatments nightly. He currently does not produce urine signaling a progression of his renal insufficiency. Initial CT imaging results were concerning for perforation however after consultation with Dr. Vasquez, patient likely has C. difficile colitis recurrence. Dr. Vasquez discussed the patient with [facility] transplant team attending and infectious disease attending regarding the patient 's treatment regimen and they recommended Vancomycin 250 mg QID (script was given to the patient). Patient was offered admission and pursuit of transfer to [place] or [facility] but patient declined in spite of understanding the high risk of progression of disease and infection stating that he would follow up tomorrow with [facility]. Patient voiced understanding of work up findings and recommendations and opted to go home with his mother. Patient was in no acute distress at time of discharge. Decision to Disposition Date: Feb 20, 2018 Decision to Disposition Time: 20:42 Depart Departure Latest Vital Signs Vital Signs Date Time Temp Pulse Resp B/P (MAP) Pulse Ox O2 Delivery O2 Flow Rate FiO2 02/20/18 20:53 158/96 (116) 02/20/18 20:45 117 91 02/20/18 16:15 98.9 12 Room Air Impression: Primary Impression: C. difficile colitis Additional Impressions: Dialysis patient Chronic kidney disease (CKD) Condition: Improved Disposition: HOME OR SELF-CARE Referrals: TOMAS BISHOP MD (PCP) New Scripts Vancomycin Hcl (VANCOMYCIN HCL) 250 Mg Capsule 250 MG PO QID for 14 Days, #56 CAPSULE Prov: GRAY SMITH DO 02/20/18 Patient Instructions: Abdominal Pain (ED), Colitis (ED) Additional Instructions: Please follow-up tomorrow with [facility]. Please return promptly if you develop fevers, chills, increased pain, blood in the stools, trouble breathing, chest pains, weakness, fatigue, nausea, vomiting. A script was provided for Vancomycin 250 mg four times daily. Problem Qualifiers GRAY SMITH DO Feb 20, 2018 17:59
[2018-02-20] MEDS ORDERED: fentaNYL CITR 100 MCG/2 ML AMP IVP ONE (18:10)
--- NOTE | 2018-02-20 18:17 | RADIOLOGY IMAGING REPORT ---
FACILITY: [facility] PATIENT NAME: Paresh Barrera : 1995 MR: [id number] V: [id number] EXAM DATE: ORDERING PHYSICIAN: CHAYO PASTRANA TECHNOLOGIST: Location: [facility] Patient: Paresh Barrera : 1995 Visit/Account:[id number] Date of Sevice: 02/20/2018 CT abdomen and pelvis without contrast Indication: Abdominal pain. Comparison: None Available. Technique: Axial CT images are obtained through the abdomen and pelvis. Reformatted coronal and sagit pb images were reviewed. IV contrast was not administered. One of the following dose optimization techniques was utilized in the performance of this exam: auto mated exposure control; adjustment of the mA and/or kV according to the patient's size; or use of an iterative reconstruction technique. Specific details can be referenced in the facility's radiology C T exam operational policy. Findings: Lower lung thao: Limited views lower lung field are unremarkable. Evaluation of the solid organs of the abdomen is limited without IV contrast. Liver: No focal parenchymal abnormality of the liver. Biliary: Gallbladder appears unremarkable as well as the intra and extra hepatic biliary system. Pancreas: Normal appearance. Spleen: Normal appearance. Adrenal glands: Unremarkable. Kidneys / retroperitoneum: Solitary right kidney shows no focal abnormality. Bowel / peritoneum / mesenteries: The cecum and ascending colon shows significant abnormal wall thick ening and edema with surrounding inflammation. Sigmoid colon does show some diverticula without peric olonic inflammation. The colon shows no other focal abnormality. The small bowel shows no focal abnor mality or obstruction. The stomach is unremarkable. The duodenum shows no discrete focal normality. H owever there are some free air adjacent to the duodenum with nondependent small amount of free air pr esent. Small amount of ascites is present. However there is a peritoneal catheter in place. No fluid collections. Lymph node assessment: No pathologic adenopathy identified. Pelvic structures: Urinary bladder is partially decompressed and grossly normal. The remaining pel fitz structures visualized within normal limits. Vessels: No significant atherosclerotic calcifications seen throughout a nonaneurysmal abdominal aort a and branches. Musculoskeletal / Body wall: No acute or aggressive osseous abnormality. IMPRESSION: 1. Small amount of free air is present in the nondependent portion with small amount of free air on t he duodenum region. Unsure if this is secondary to duodenal perforation or rupture also. 2. The cecum and ascending colon show diffuse abnormal thickening and edematous changes to the wall o r surrounding inflammation. This could be secondary to colitis. Cannot exclude small perforation from this area which would cause the free air. 3. Small amount of ascites. However there is a peritoneal catheter is in place. 4. Sigmoid diverticulosis without radiographic indication diverticulitis. I called report to CHAYO PASTRANA at 02/20/2018 6:13 PM. Report Dictated By: Tru Thompson at 02/20/2018 6:05 PM Report E-Signed By: Tru Thompson at 02/20/2018 6:14 PM WSN:[id number]
[2018-02-20] MEDS ORDERED: PIPERACILLIN/TAZO*3.375GM VIAL 3.375 GM in NS(*) 0.9% 100 ML ADDVANT BAG 100 ML IVPB ONE (18:20)
[2018-02-20] MEDS ORDERED: VANC250C3 PO (20:50)
[2018-02-20 20:53] VITALS: BP 158/96
--- NOTE | 2018-02-20 21:00 | General Surgery Consultation ---
History of Present Illness Requesting Physician Dr. Smith Reason for Consult RLQ abdominal pain Chief Complaint Abdominal pain with recent C dif History of Present Illness 22 y/o male with complex medical history recently treated at [facility] [place] with Strept throat being treated as an outpt with oral antibiotics (Single dose of Rocephin followed by Augmentin) and sudden onset of sepsis. While there was diagnosed with C. difficile. Pt is immunosuppressed with Prednisone 10 mg QD and Cyclosporin 75 mg BID. Was discharged from the hospital 25 January on a tapered dose of oral vancomycin. Now presents with 3 day hx of RLQ abdominal pain, no radiation. No F/C/N/V Over the past 2 days his stool has been more loose and he took two doses of Imodium. Pt does use nightly peritoneal dialysis and this has been uncomplicated. 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 S/P Renal transplant- failed starting September 2016 GERD Diverticula sigmoid (seen on CT scan Feb 2018) Muscle spasticity Anemia, chronic disease Rectal prolapse (since C dif dx) C dif colitis starting January 03 PSHX: Renal Transplant 2000 ([facility] [place]) Tendon transfer, bilateral feet 2010 Left Hip Arthroplasty 2009 Tonsillectomy 1999 Hemodialysis catheter Sep 2016 Peritoneal dialysis catheter May 2017 MEDS: Prednisone 10 QD Cyclosporin 75 mg BID PPI Tizanidine 2 mg QQID Calcitriol 0.25 mcg TOB: None ETOH: None Drugs: None SOCIAL: Lives in [place], [place] with family Moved to [place] in 2016 from [facility] FHX: Father, Sandhya, Well Mother, Alive, Well Sister, Alive, Well Brother, Alive well Brother, Alive, Muscular Disorder History Home Meds Active Scripts Vancomycin Hcl (VANCOMYCIN HCL) 250 Mg Capsule, 250 MG PO QID for 14 Days, #56 CAPSULE Prov:GRAY SMITH DO 02/20/18 Ondansetron (ZOFRAN ODT) 4 Mg Tab.rapdis, 4 MG PO every 6 hours Y for NAUSEA/ VOMITING, #15 TAB TAKE 1 TABLET BY MOUTH EVERY 12 HOURS Prov:KVNG DAS DO 01/11/18 Reported Medications Tizanidine Hcl (TIZANIDINE HCL) 2 Mg Capsule, 2 MG PO Q6H Y for prn, CAPSULE 02/16/18 Vancomycin HCl (Vancocin HCl) 250 Mg Capsule, 500 MG PO EVERY 3RD DAY 02/16/18 Sevelamer Carbonate (RENVELA) 800 Mg Tablet, 2400 MG PO TID 09/10/17 Calcitriol (CALCITRIOL) 0.25 Mcg Cap, 0.25 MCG PO BID, CAP 09/10/17 Prednisone 10 Mg Tab (PREDNISONE 10 MG TAB) 10 Mg Tablet, 5 MG PO QDAY, TAB 12/23/16 Omeprazole (OMEPRAZOLE) 40 Mg Capsule.dr, 40 MG PO QDAY, CAP 12/23/16 Folic Acid/Vitamin B Comp W-C (NEPHROCAPS SOFTGEL) 1 Mg Capsule, 1 MG PO, CAPSULE 12/23/16 Cyclosporine, Modified (GENGRAF) 25 Mg Capsule, 75 MG PO BID, CAPSULE 12/23/16 Discontinued Reported Medications Cyclobenzaprine Hcl (CYCLOBENZAPRINE HCL) 10 Mg Tablet, 5 MG PO TID, #9 TAB 09/10/17 Carvedilol (CARVEDILOL) 25 Mg Tablet, 25 MG PO BID, #10 TAB 09/10/17 Cinacalcet Hcl (SENSIPAR) 30 Mg Tablet, 30 MG PO DAILY 05/12/17 Amlodipine Besylate (AMLODIPINE BESYLATE) 10 Mg Tablet, 10 MG PO QHS, TAB 05/10/17 Lisinopril (LISINOPRIL) 10 Mg Tablet, 20 MG PO BID, TAB 03/10/17 Furosemide (FUROSEMIDE) 40 Mg Tablet, 2 TAB PO QDAY, TAB 12/23/16 Discontinued Scripts Amoxicillin/Potassium Clav (AMOX TR-K CLV 400-57/5 SUSP) 400 Mg/5 Ml Susp.recon , 800 MG PO Q12H for Strep pharyngitis, #200 ML Prov:KVNG DAS DO 01/11/18 Allergies: Coded Allergies: cycloserine (Verified Allergy, Severe, anaphlaxsis, 02/20/18) ceftazidime (Unverified Allergy, Mild, Rash, 02/20/18) Uncoded Allergies: live vaccines (Allergy, Unknown, 02/16/18) Review of Systems Constitutional: Weight Loss (10 pounds at [facility]), No Fever, No Weight Gain, No Chills, No Night Sweats Neurological: No Syncope, No Confusion, No Weakness Eyes: No Vision Change, No Loss of Vision ENT: No Hearing Loss, No Sore Throat Cardiovascular: No Chest Pain Respiratory: No Shortness of Breath, No Cough Gastrointestinal: No Nausea, No Vomiting, Diarrhea, No Dysphagia, No Constipation, No Hematemesis, No Hematochezia, No Melena, Abdominal Pain Genitourinary: No Dysuria, No Hematuria Musculoskeletal: Impaired Mobility Psychiatric: Depression, No Anxiety Exam Vital Signs Vital Signs Date Time Temp Pulse Resp B/P (MAP) Pulse Ox O2 Delivery O2 Flow Rate FiO2 02/20/18 18:15 116 91 02/20/18 18:00 153/106 (122) 02/20/18 16:15 98.9 12 Room Air General Appearance: Alert, Awake, No Acute Distress, Afebrile (98.6), Other ( Thin frail appearing male) Neuro: Other (Morales;ateral lower ext deformed, thin, weak) Eyes: PERRLA, Other (EOMI) ENT: Moist Mucous Membranes, Posterior Pharynx Clear, Other (Swollen face) Neck: No Masses Cardiovascular: Normal Rhythm & Peripheral Pulses, Other (Rapid rate 117) Respiratory: No Respiratory Distress, Clear to Auscultation Chest: No Tenderness GI: Other (Peritoneal dialysis catheter without erythema; RLQ percussion tenderness and tenderness to palpation. No pain with pelvic shake or cough; No abd wall erythema ) : No CVA Tenderness Lymph: No Adenopathy Musculoskeletal: Other (Weekness bilateral lower extremities ) Extremities: Soft and Non Tender, Warm, Pulses, Perfused, No Edema Integumentary: Skin Intact without Lesion / Mass Psych: Alert & Oriented X3, Appropriate Mood & Affect Medical Decision Making Data Points Result Diagram: 02/20/18 1715 02/20/18 1715 Blood Cultures EKG / Imaging Monitor Interpretation: Sinus Tachycardia Imaging CT abdomen and pelvis without contrast Indication: Abdominal pain. Comparison: None Available. Technique: Axial CT images are obtained through the abdomen and pelvis. Reformatted coronal and sagittal images were reviewed. IV contrast was not administered. One of the following dose optimization techniques was utilized in the performance of this exam: automated exposure control; adjustment of the mA and/ or kV according to the patient's size; or use of an iterative reconstruction technique. Specific details can be referenced in the facility's radiology CT exam operational policy. Findings: Lower lung thao: Limited views lower lung field are unremarkable. Evaluation of the solid organs of the abdomen is limited without IV contrast. Liver: No focal parenchymal abnormality of the liver. Biliary: Gallbladder appears unremarkable as well as the intra and extra hepatic biliary system. Pancreas: Normal appearance. Spleen: Normal appearance. Adrenal glands: Unremarkable. Kidneys / retroperitoneum: Solitary right kidney shows no focal abnormality. Bowel / peritoneum / mesenteries: The cecum and ascending colon shows significant abnormal wall thickening and edema with surrounding inflammation. Sigmoid colon does show some diverticula without pericolonic inflammation. The colon shows no other focal abnormality. The small bowel shows no focal abnormality or obstruction. The stomach is unremarkable. The duodenum shows no discrete focal normality. However there are some free air adjacent to the duodenum with nondependent small amount of free air present. Small amount of ascites is present. However there is a peritoneal catheter in place. No fluid collections. Lymph node assessment: No pathologic adenopathy identified. Pelvic structures: Urinary bladder is partially decompressed and grossly normal. The remaining pelvic structures visualized within normal limits. Vessels: No significant atherosclerotic calcifications seen throughout a nonaneurysmal abdominal aorta and branches. Musculoskeletal / Body wall: No acute or aggressive osseous abnormality. IMPRESSION: 1. Small amount of free air is present in the nondependent portion with small amount of free air on the duodenum region. Unsure if this is secondary to duodenal perforation or rupture also. 2. The cecum and ascending colon show diffuse abnormal thickening and edematous changes to the wall or surrounding inflammation. This could be secondary to colitis. Cannot exclude small perforation from this area which would cause the free air. 3. Small amount of ascites. However there is a peritoneal catheter is in place. 4. Sigmoid diverticulosis without radiographic indication diverticulitis. I called report to CHAYO PASTRANA at 02/20/2018 6:13 PM. Report Dictated By: Tru Thompson at 02/20/2018 6:05 PM Pre-Admit Course ED Medications 1 liter NS Medical Record Review: Yes Assessment and Plan Problems: (1) Immunosuppression Status: Chronic Assessment & Plan: Discussed with Renal Transplant Attending at the [facility]. Recommended dropping Cyclosporin to 25 mg BID now. Would stop completely if he becomes septic. Continue Prednisone 10 QD. Weaning off immunosuppression increases risk of rejection secondary to rising antibodies should a future transplant be considered (2) ESRD (end stage renal disease) on dialysis Status: Chronic Assessment & Plan: Peritoneal dialysis; Has free air but no diffuse peritoneal tenderness (3) Leukocytosis Status: Acute Assessment & Plan: Likely secondary to Colitis (4) C. difficile colitis Status: Acute Assessment & Plan: Relapse from January 2018 treatment at [facility]. Discussed with ID attending at [facility]: recommended Oral Vancomycin 250 QID. Avoid Flagyl so long as tolerating po. In my opinion, he should be admitted for care due to his immunosuppression. Pt at high risk for sepsis. Discussed the complications of not admitting with the pt and his mother. Due to a need for peritoneal dialysis, they will go to [facility] in the AM but will start the higher dose of vancomycin tonight. (5) Dialysis patient Status: Chronic Assessment & Plan: On nightly peritoneal dialysis (6) Chronic kidney disease (CKD) Status: Chronic (7) Anemia of chronic disease Status: Chronic (8) Rectal prolapse Status: Chronic Assessment & Plan: resolved at this time (9) Dehydration Status: Acute Assessment & Plan: Hydrated in the ED (10) Malnutrition Status: Acute Assessment & Plan: 10 pound recent weight loss, past month. Critical Time Spent: 1st 30-74 Minutes (120 minutes spent with H&P, record review, consultation with renal transplant and ID at the [facility], care plan discussion with the pt and his mother) Copies to: TOMAS CORNELIUS MD Venous Thromboembolism VTE Risk Physician Assess for VTE Risk: Yes Patient's VTE Risk: Low VTE Diagnostic Test 2 Days Prior to Admit: No Antithrombotics Is Pt On Any Antithrombotics?: No Problem Qualifiers (1) Leukocytosis: Leukocytosis type: bandemia Qualified Codes: D72.825 - Bandemia (2) Chronic kidney disease (CKD): Chronic kidney disease stage: on chronic dialysis Qualified Codes: N18.6 - End stage renal disease; Z99.2 - Dependence on renal dialysis (3) Malnutrition: Malnutrition type: protein-calorie malnutrition SARAH RIVAS MD Feb 20, 2018 20:59
== END 2018-02-20 21:06 | disposition home or self-care (01) ==
LOC: ER 16:23
DX: A04.72 Enterocolitis due to Clostridium difficile, not specified as recurrent (principal); N18.6 End stage renal disease; Z99.2 Dependence on renal dialysis; Z94.0 Kidney transplant status
CPT/HCPCS: 74176; 85025; 86850; 86900; 86901; 87040; 96361; 96365; 96375; 99284; J1885; J2543; J3010; J7030; J7050; 82040; 82247; 82310; 82374; 82435; 82565; 82947; 84075; 84132; 84155; 84295; 84450; 84460; 84520

== ENCOUNTER → 2018-02-21 | Outpatient (CLI) | payer MEDICARE, MEDICAID ==
[~2018-02-21] MED LIST changes: +VANC250C3 PO
--- NOTE | 2018-02-21 10:45 | RADIOLOGY IMAGING REPORT ---
FACILITY: [facility] PATIENT NAME: Paresh Barrera : 1995 MR: [id number] V: [id number] EXAM DATE: ORDERING PHYSICIAN: TOMAS BISHOP TECHNOLOGIST: Location: [facility] [place] Patient: Paresh Barrera : 1995 Visit/Account:[id number] Date of Sevice: 02/21/2018 Examination: MR brain without contrast History: Spasticity Comparison: None Technique: Noncontrast sagittal T1 acquisition obtained. The patient was unable to continue further i maging. Findings: Sagittal T1 acquisition was obtained. The patient was unable to tolerate further imaging. The midline craniocervical structures are normal. No apparent intracranial abnormality seen on this l imited acquisition. IMPRESSION: Incomplete nondiagnostic brain MR. The patient was unable to tolerate a complete exam. A sagittal T1 acquisition was obtained which reveals no apparent intracranial abnormality. Report Dictated By: Jaime Cottrell MD at 02/21/2018 10:39 AM Report E-Signed By: Jaime Cottrell MD at 02/21/2018 10:41 AM WSN:[id number]
== END ==
LOC: MRI 02-17 07:00
PROVIDERS: ATTEND Family Medicine
DX: G83.89 Other specified paralytic syndromes (principal); N18.5 Chronic kidney disease, stage 5
CPT/HCPCS: 70551

== ENCOUNTER 2018-03-19 11:44 | Emergency (ER) | payer MEDICARE, MEDICAID ==
[2018-03-19] MEDS ORDERED: LISI20TA29 PO (11:56)
[2018-03-19] MEDS ORDERED: AMLO-99 PO (11:56)
--- NOTE | 2018-03-19 12:06 | ER Report ---
History and Physical Time Seen By MD: 12:07 Hx. of Stated Complaint: PATIENT'S MOTHER REPORTS THAT HE HAS HAD C-DIFF SINCE December CHIEF COMPLAINT: diarrhea with history of recent c. diff. HISTORY OF PRESENT ILLNESS: This is a 22 year old male. He has a history of recent c diff treated with oral vancomycin. He finished this course and was doing well. This morning, had diarrhea again, similar to c diff in the past. Collected a sample and brought that in. Has some abdominal pain in right upper abdomen. Does nightly peritoneal dialysis, and noted clear fluid removed from the abdomen this morning. No nausea or vomiting. No fevers or chills. Has a slight feeling of shortness of breath. No chest pain. Still on Prednisone 5mg daily and Cyclosporin for his kidney transplant. Awaiting further visit with the transplant team at the [facility] for further decisions about the kidney transplant at this time. Allergies: Coded Allergies: cycloserine (Verified Allergy, Severe, anaphlaxsis, 02/20/18) ceftazidime (Unverified Allergy, Mild, Rash, 02/20/18) Uncoded Allergies: live vaccines (Allergy, Unknown, 02/16/18) Home Meds Active Scripts Baclofen (BACLOFEN) 10 Mg Tablet, 2.5 MG PO TID PRN for MUSCLE SPASMS, #10 TAB 0 Refills Prov:VARSHA MICHAUD MD 03/19/18 Vancomycin Hcl (VANCOMYCIN HCL) 250 Mg Capsule, 250 MG PO QID, #40 CAPSULE 0 Refills Prov:VARSHA MICHAUD MD 03/19/18 Ondansetron (ZOFRAN ODT) 4 Mg Tab.rapdis, 4 MG PO every 6 hours PRN for NAUSEA/VOMITING, #15 TAB TAKE 1 TABLET BY MOUTH EVERY 12 HOURS Prov:KVNG DAS DO 01/11/18 Reported Medications Amlodipine Besylate (AMLODIPINE BESYLATE) 10 Mg Tablet, 1 TAB PO QDAY, TAB 03/19/18 Lisinopril (LISINOPRIL) 20 Mg Tablet, 20 MG PO BID, TAB 03/19/18 Tizanidine Hcl (TIZANIDINE HCL) 2 Mg Capsule, 2 MG PO Q6H PRN for prn, CAPSULE 02/16/18 Sevelamer Carbonate (RENVELA) 800 Mg Tablet, 2400 MG PO TID 09/10/17 Calcitriol (CALCITRIOL) 0.25 Mcg Cap, 0.25 MCG PO BID, CAP 09/10/17 Prednisone 10 Mg Tab (PREDNISONE 10 MG TAB) 10 Mg Tablet, 5 MG PO QDAY, TAB 12/23/16 Omeprazole (OMEPRAZOLE) 40 Mg Capsule.dr, 40 MG PO QDAY, CAP 12/23/16 Folic Acid/Vitamin B Comp W-C (NEPHROCAPS SOFTGEL) 1 Mg Capsule, 1 MG PO, CAP [place] 12/23/16 Cyclosporine, Modified (GENGRAF) 25 Mg Capsule, 75 MG PO BID, CAPSULE 12/23/16 Discontinued Reported Medications Vancomycin HCl (Vancocin HCl) 250 Mg Capsule, 500 MG PO EVERY 3RD DAY 02/16/18 Discontinued Scripts Vancomycin Hcl (VANCOMYCIN HCL) 250 Mg Capsule, 250 MG PO QID for 14 Days, #56 CAPSULE Prov:GRAY SMITH Evgeny GOODEN 02/20/18 Past Medical/Surgical History 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 difficile colitis as noted. Renal transplant was done in 2000, failed starting September 2016, bilateral tendon transfer in the feet in 2009, left hip arthroplasty in 2009, tonsillectomy, peritoneal dialysis catheter May 2017, hemodialysis catheter September 2016 Reviewed Nurses Notes: Yes Smoking Status: Never Smoker Hx Substance Use Disorder: No Hx Alcohol Use: No Constitutional Vital Sign - Last 24 Hours 03/19/18 03/19/18 03/19/18 03/19/18 11:44 11:49 11:51 12:00 Temp 99.1 Pulse ??? 122 Resp 20 B/P (MAP) 107/81 (90) 107/81 155/103 (120) Pulse Ox 94 O2 Delivery Room Air 03/19/18 03/19/18 03/19/18 03/19/18 12:14 12:30 13:00 14:14 Pulse 121 B/P (MAP) 148/119 (129) 168/118 (135) 161/149 (153) Pulse Ox 95 Physical Exam General Appearance: The patient is alert. No acute distress. Eyes: Pupils are equal, round. No pallor, injection or icterus. ENT: Mucous membranes are moist. Normal oral mucosa. Posterior oropharynx is normal. Neck: Supple and non tender. No lymphadenopathy. Respiratory: Lungs are clear to auscultation. Cardiovascular: Regular rate and rhythm. No murmurs, gallops or rubs. Normal capillary refill. Gastrointestinal: Abdomen is soft, some discomfort in the right upper abdomen. Nondistended. No masses or organomegaly. Normal active bowel sounds. No CVA tenderness. Peritoneal dialysis catheter is normal without any skin changes. Neurological: Alert and oriented x3. Skin: Warm and dry. No rashes. DIFFERENTIAL DIAGNOSIS: After history and physical exam, differential diagnosis was considered for concern for possible C. difficile diarrhea again. Medical Decision Making Data Points Laboratory Hematology Test 03/19/18 12:03 Stool Occult Blood (IFOB) Positive (NEGATIVE) Stool Leukocytes, Qualitative Positive Clostridium Difficile Toxin A & B Positive Clostridium difficile Antigen Positive Chemistry Test 03/19/18 12:03 Stool Occult Blood (IFOB) Positive (NEGATIVE) Stool Leukocytes, Qualitative Positive Clostridium Difficile Toxin A & B Positive Clostridium difficile Antigen Positive ED Course/Re-evaluation Clinical Indication for ER IV: IV Access ED Course Positive C diff. Patient and his mother would like to start oral Vancomycin. He is feeling okay otherwise and they will follow-up with their doctors this coming week. We did start an IV and get him and IV dose of Vancomycin followed by prescription for oral Vanco 250mg capsules 4 times a day. He was having increase muscle spasms, so tried 0.5mg of Ativan IV, but unhelpful, so tried 5mg of Baclofen. He thought this worked well and they will try a low dose of this at home this weekend until they follow-up with their doctor. Decision to Disposition Date: Mar 19, 2018 Decision to Disposition Time: 13:20 Depart Departure Latest Vital Signs Vital Signs Date Time Temp Pulse Resp B/P (MAP) Pulse Ox O2 Delivery O2 Flow Rate FiO2 03/19/18 14:14 161/149 (153) 03/19/18 12:14 121 95 03/19/18 11:51 99.1 20 Room Air Impression: Primary Impression: Clostridium difficile diarrhea Condition: Condition Unchanged Disposition: HOME OR SELF-CARE Referrals: TOMAS BISHOP MD (PCP) New Scripts Baclofen (BACLOFEN) 10 Mg Tablet 2.5 MG PO TID PRN for MUSCLE SPASMS, #10 TAB 0 Refills Prov: VARSHA MICHAUD MD 03/19/18 Vancomycin Hcl (VANCOMYCIN HCL) 250 Mg Capsule 250 MG PO QID, #40 CAPSULE 0 Refills Prov: VARSHA MICHAUD MD 03/19/18 Patient Instructions: Clostridium Difficile Infection (ED) Additional Instructions: Start Vancomycin 250mg capsules, 1 capsule 4 times a day. Follow-up with your doctors to determine length of treatment. Return if needed for fevers/chills, nausea/vomiting, worsening abdominal pain. You can also try taking Baclofen 10mg tablets, 1/4 tablet 3 times a day as needed VARSHA MICHAUD MD Mar 19, 2018 12:06
[2018-03-19] MEDS ORDERED: VANCOMYCIN 1 GM ADDVIAL 1 GM in NS(*) 0.9% 250 ML ADDVAN BAG 250 ML IVPB ONE (13:00)
[2018-03-19] MEDS ORDERED: LORazepam 2 MG/ML VIAL IVP ONE (13:00)
[2018-03-19] MEDS ORDERED: VANC250C3 PO (13:21)
[2018-03-19] MEDS ORDERED: BACLOFEN 10 MG TAB PO ONE (13:35)
[2018-03-19 14:14] VITALS: BP 161/149
[2018-03-19] MEDS ORDERED: BACL-1 PO (14:15)
== END 2018-03-19 14:28 | disposition home or self-care (01) ==
LOC: ER 11:55
DX: A04.72 Enterocolitis due to Clostridium difficile, not specified as recurrent (principal)
CPT/HCPCS: 82274; 83630; 87045; 87324; 87449; 96365; 96375; 99284; A9270; J2060; J3370; J7050

== ENCOUNTER 2018-11-17 00:55 | Emergency (ER) | payer MEDICARE, MEDICAID ==
[~2018-11-17 00:55] MED LIST changes: +AMLO-125 PO; +AMLO-127 PO; -AMLO-96 PO; -AMLO-99 PO; +BACL-1 PO; +LISI20TA29 PO; -VANC250C3 PO; +VANC250C4 PO
--- NOTE | 2018-11-17 01:18 | ER Report ---
History and Physical Time Seen By MD: 01:17 Hx. of Stated Complaint: UNCONTROLLED LEG PAIN. HAS BEEN SEEING A NEUROLOGIST WITHOUT ANYTHING WORKING. TONIGHT PAIN AND SPASM HAVE GOTTEN REALLY BAD HPI/ROS CHIEF COMPLAINT: severe leg spasming and pain HISTORY OF PRESENT ILLNESS: This is a 23 year old male. He has chronic leg pain and spasming and working with neurology in [place] to look for help. Plan to get Botox coming up in a month or two. Multiple medications tried, some work temporarily, but none for long. Complicated by the fact that he is peritoneal dialysis with history of kidney transplant in the past that is no longer viable and continued imunosuppression. No fevers or chills. No shortness of breath. Has used Baclofen tonight. Also on Buprenorphine patch. The patch was recently doubled, but because of suppression of bleeding, now back to single patch. Also tried cannabinoids without relief. Has had one round of peritoneal dialysis tonight, usually has 5 rounds of this, but because of pian, have not been able to complete this. Allergies: Coded Allergies: cycloserine (Verified Allergy, Severe, anaphlaxsis, 02/20/18) ceftazidime (Unverified Allergy, Mild, Rash, 02/20/18) Uncoded Allergies: live vaccines (Allergy, Unknown, 02/16/18) Home Meds Active Scripts Baclofen (BACLOFEN) 10 Mg Tablet, 2.5 MG PO TID PRN for MUSCLE SPASMS, #10 TAB 0 Refills Prov:VARSHA MICHAUD MD 03/19/18 Ondansetron (ZOFRAN ODT) 4 Mg Tab.rapdis, 4 MG PO every 6 hours PRN for NAUSEA/VOMITING, #15 TAB TAKE 1 TABLET BY MOUTH EVERY 12 HOURS Prov:KVNG DAS DO 01/11/18 Reported Medications Dronabinol (MARINOL) 2.5 Mg Capsule, 2.5 MG PO BID, CAPSULE 11/17/18 Mirtazapine (MIRTAZAPINE) 15 Mg Tablet, 15 MG PO AB 11/17/18 Carvedilol (CARVEDILOL) 25 Mg Tablet, 25 MG PO BID, #10 TAB 11/17/18 Torsemide (TORSEMIDE) 100 Mg Tablet, 100 MG PO BID 11/17/18 Famotidine (FAMOTIDINE) 20 Mg Tablet, 20 MG PO BID, TAB 11/17/18 Folic Acid/Vitamin B Comp W-C (NEPHRO-DALI TABLET) 0.8 Mg Tablet, 0.8 MG PO 11/17/18 Ropinirole Hcl (ROPINIROLE HCL) 0.25 Mg Tablet, 0.25 MG PO TID 11/17/18 Clonazepam (CLONAZEPAM) 0.5 Mg Tablet, 0.5 MG PO BID, #6 TAB 11/17/18 Minoxidil (MINOXIDIL) 2.5 Mg Tab, 2.5 MG GT, TAB 11/17/18 Cyclosporine, Modified (GENGRAF) 25 Mg Capsule, 25 MG PO BID, CAPSULE 11/17/18 Amlodipine Besylate (AMLODIPINE BESYLATE) 10 Mg Tablet, 1 TAB PO QDAY, TAB 03/19/18 Lisinopril (LISINOPRIL) 20 Mg Tablet, 20 MG PO BID, TAB 03/19/18 Tizanidine Hcl (TIZANIDINE HCL) 2 Mg Capsule, 2 MG PO Q6H PRN for prn, CAPSULE 02/16/18 Sevelamer Carbonate (RENVELA) 800 Mg Tablet, 2400 MG PO TID 09/10/17 Prednisone 10 Mg Tab (PREDNISONE 10 MG TAB) 10 Mg Tablet, 5 MG PO QDAY, TAB 12/23/16 Discontinued Reported Medications Calcitriol (CALCITRIOL) 0.25 Mcg Cap, 0.25 MCG PO BID, CAP 09/10/17 Omeprazole (OMEPRAZOLE) 40 Mg Capsule.dr, 40 MG PO QDAY, CAP 12/23/16 Folic Acid/Vitamin B Comp W-C (NEPHROCAPS SOFTGEL) 1 Mg Capsule, 1 MG PO, CAPSULE 12/23/16 Cyclosporine, Modified (GENGRAF) 25 Mg Capsule, 75 MG PO BID, CAPSULE 12/23/16 Discontinued Scripts Vancomycin Hcl (VANCOMYCIN HCL) 250 Mg Capsule, 250 MG PO QID, #40 CAPSULE 0 Ref ills Prov:VARSHA MICHAUD MD 03/19/18 Reviewed Nurses Notes: Yes Smoking Status: Never Smoker Hx Substance Use Disorder: No Hx Alcohol Use: No Constitutional Vital Sign - Last 24 Hours 11/17/18 11/17/18 11/17/18 11/17/18 01:01 01:22 01:25 01:58 Temp 98.1 Pulse 125 119 Resp 26 B/P (MAP) 151/124 151/124 (133) 148/139 (142) Pulse Ox 90 93 O2 Delivery Room Air 11/17/18 11/17/18 11/17/18 02:00 02:25 02:30 Pulse 108 B/P (MAP) 159/106 (123) 152/103 (119) Pulse Ox 92 Physical Exam General Appearance: The patient is alert. Acute distress because of pain and spasm. Eyes: Pupils are equal, round. No pallor, injection or icterus. ENT: Mucous membranes are moist. Normal oral mucosa. Respiratory: Clear to auscultation. Cardiovascular: Regular rate and rhythm. No murmurs, gallops or rubs. Gastrointestinal: Abdomen is soft and non tender. Neurological: Alert and oriented x3. Skin: Warm and dry. No rashes. Musculoskeletal: No pain with palpation of the extremities, but has constant spasms and uncontrolled movements of the legs, some in the arms as well, but much less. DIFFERENTIAL DIAGNOSIS: After history and physical exam, differential diagnosis was considered for pain and spasms, acute exacerbation of chronic problem. Medical Decision Making Data Points Result Diagram: 11/17/18 0156 11/17/18 0156 Laboratory Hematology Test 11/17/18 01:56 Red Blood Count 4.10 M/uL (4.00-5.60) Mean Corpuscular Volume 90.4 fL (80.0-96.0) Mean Corpuscular Hemoglobin 30.1 pg (26.0-33.0) Mean Corpuscular Hemoglobin Concent 33.2 g/dL (32.0-36.0) Red Cell Distribution Width 15.4 % (11.5-14.5) Mean Platelet Volume 6.6 fL (7.2-11.1) Neutrophils (%) (Auto) 70.0 % (39.4-72.5) Lymphocytes (%) (Auto) 18.7 % (17.6-49.6) Monocytes (%) (Auto) 7.7 % (4.1-12.4) Eosinophils (%) (Auto) 1.7 % (0.4-6.7) Basophils (%) (Auto) 1.9 % (0.3-1.4) Nucleated RBC Relative Count (auto) 0.1 /100WBC Neutrophils # (Auto) 10.7 K/uL (2.0-7.4) Lymphocytes # (Auto) 2.9 K/uL (1.3-3.6) Monocytes # (Auto) 1.2 K/uL (0.3-1.0) Eosinophils # (Auto) 0.3 K/uL (0.0-0.5) Basophils # (Auto) 0.3 K/uL (0.0-0.1) Nucleated RBC Absolute Count (auto) 0.01 K/uL Peripheral Blood Smear Yes Y/N Sodium Level 139 mmol/L (137-145) Potassium Level 4.3 mmol/L (3.5-5.0) Chloride Level 98 mmol/L (98-107) Carbon Dioxide Level 27 mmol/L (22-30) Blood Urea Nitrogen 77 mg/dl (9-21) Creatinine 11.90 mg/dl (0.66-1.25) Glomerular Filtration Rate Calc 5.3 Random Glucose 88 mg/dl (75-110) Calcium Level 9.3 mg/dl (8.4-10.2) Phosphorus Level 8.7 mg/dl (2.5-4.5) Magnesium Level 3.2 mg/dl (1.7-2.2) Total Bilirubin 0.3 mg/dl (0.2-1.3) Aspartate Amino Transf (AST/SGOT) 27 U/L (0-35) Alanine Aminotransferase (ALT/SGPT) 31 U/L (0-56) Alkaline Phosphatase 85 U/L (0-126) Total Protein 6.8 g/dl (6.3-8.2) Albumin 3.9 g/dl (3.5-5.0) Chemistry Test 11/17/18 01:56 White Blood Count 15.3 k/uL (4.5-11.0) Red Blood Count 4.10 M/uL (4.00-5.60) Hemoglobin 12.3 g/dL (14.0-18.0) Hematocrit 37.1 % (42.0-52.0) Mean Corpuscular Volume 90.4 fL (80.0-96.0) Mean Corpuscular Hemoglobin 30.1 pg (26.0-33.0) Mean Corpuscular Hemoglobin Concent 33.2 g/dL (32.0-36.0) Red Cell Distribution Width 15.4 % (11.5-14.5) Platelet Count 360 K/uL (150-450) Mean Platelet Volume 6.6 fL (7.2-11.1) Neutrophils (%) (Auto) 70.0 % (39.4-72.5) Lymphocytes (%) (Auto) 18.7 % (17.6-49.6) Monocytes (%) (Auto) 7.7 % (4.1-12.4) Eosinophils (%) (Auto) 1.7 % (0.4-6.7) Basophils (%) (Auto) 1.9 % (0.3-1.4) Nucleated RBC Relative Count (auto) 0.1 /100WBC Neutrophils # (Auto) 10.7 K/uL (2.0-7.4) Lymphocytes # (Auto) 2.9 K/uL (1.3-3.6) Monocytes # (Auto) 1.2 K/uL (0.3-1.0) Eosinophils # (Auto) 0.3 K/uL (0.0-0.5) Basophils # (Auto) 0.3 K/uL (0.0-0.1) Nucleated RBC Absolute Count (auto) 0.01 K/uL Peripheral Blood Smear Yes Y/N Glomerular Filtration Rate Calc 5.3 Calcium Level 9.3 mg/dl (8.4-10.2) Phosphorus Level 8.7 mg/dl (2.5-4.5) Magnesium Level 3.2 mg/dl (1.7-2.2) Total Bilirubin 0.3 mg/dl (0.2-1.3) Aspartate Amino Transf (AST/SGOT) 27 U/L (0-35) Alanine Aminotransferase (ALT/SGPT) 31 U/L (0-56) Alkaline Phosphatase 85 U/L (0-126) Total Protein 6.8 g/dl (6.3-8.2) Albumin 3.9 g/dl (3.5-5.0) ED Course/Re-evaluation Clinical Indication for ER IV: IV Access ED Course Labs obtained. Normal electrolytes, but elevated creatinine as expected. Gave Tizanidine 2mg oral dose followed by Valium 5mg IV dose. He had immediate results and was sleeping. Cannot use the Valium alot because of the renal clearance issues, but as needed IV doses when bad like this can be helpful. Home and continuing/finishing dialysis tonight recommended and follow-up with regular doctor. No changes in medications. Recommended against other narcotic medicines given his Buprenorphine patch and resulting respiratory depression experienced recently. Decision to Disposition Date: November 17, 2018 Decision to Disposition Time: 02:36 Depart Departure Latest Vital Signs Vital Signs Date Time Temp Pulse Resp B/P (MAP) Pulse Ox O2 Delivery O2 Flow Rate FiO2 11/17/18 02:30 152/103 (119) 11/17/18 02:25 108 92 11/17/18 01:01 98.1 26 Room Air Impression: Primary Impression: Muscle spasm of both lower legs Condition: Improved Disposition: HOME OR SELF-CARE Referrals: TOMAS BISHOP MD (PCP) Patient Instructions: Muscle Spasm (ED) Additional Instructions: Keep up with the dialysis as planned. Follow-up with your doctors in [place] as planned. No other changes to medicines at this time. VARSHA MICHAUD MD November 17, 2018 01:18
[2018-11-17] MEDS ORDERED: DIAZEPAM 50 MG/10 ML MDV IVP ONE (01:30)
[2018-11-17 02:11] LABS: PLATELET COUNT, AUTOMATED 360 K/uL (150-450)
[2018-11-17] MEDS ORDERED: CYCL25CA8 PO (02:23)
[2018-11-17 02:30] VITALS: BP 152/103
[2018-11-17] MEDS ORDERED: CARV25TA78 PO (02:32)
[2018-11-17] MEDS ORDERED: ROPI0.2530 PO (02:32)
[2018-11-17] MEDS ORDERED: FOLI0.8T30 PO (02:32)
[2018-11-17] MEDS ORDERED: MIRT-22 PO (02:32)
[2018-11-17] MEDS ORDERED: TORS100T22 PO (02:32)
[2018-11-17] MEDS ORDERED: CLON-331 PO (02:32)
[2018-11-17] MEDS ORDERED: MIN2.5 GT (02:32)
[2018-11-17] MEDS ORDERED: FAMO-67 PO (02:32)
[2018-11-17] MEDS ORDERED: DRON2.5C10 PO (02:49)
== END 2018-11-17 02:40 | disposition home or self-care (01) ==
LOC: ER 01:18
DX: M62.838 Other muscle spasm (principal)
CPT/HCPCS: 83735; 84100; 85025; 96374; 99283; A9270; J3360; 82040; 82247; 82310; 82374; 82435; 82565; 82947; 84075; 84132; 84155; 84295; 84450; 84460; 84520

== ENCOUNTER 2018-12-29 20:22 | Emergency (ER) | payer MEDICARE, MEDICAID ==
[~2018-12-29 20:22] MED LIST changes: +CALC667T PO; -CALC667T3 PO; +CLON-331 PO; +DRON2.5C10 PO; +FAMO-67 PO; +FOLI0.8T30 PO; +MIN2.5 GT; +MIRT-22 PO; +ROPI0.2530 PO; +TORS100T22 PO
[2018-12-29 20:30] VITALS: BP 124/121
--- NOTE | 2018-12-29 20:31 | ER Report ---
History and Physical Time Seen By MD: 20:31 HPI/ROS CHIEF COMPLAINT: Back pain, urinary urgency HISTORY OF PRESENT ILLNESS: 43-year-old male on peritoneal dialysis, status post failed renal transplant. Patient has chronic lower extremity pains. Patient was seen in the ER, approximate 6 weeks ago. He had plans that time to go see neurology for Botox injections for his chronic leg pains. He did receive an injection in his left leg, which she reports is better but still having significant pain. Tonight he is having back pain and urinary urgency. Patient denies fever and chills. Patient denies shortness of breath or cough. He does note some rhinitis. REVIEW OF SYSTEMS: Respiratory: No cough, no dyspnea. Cardiovascular: No chest pain, no palpitations. Gastrointestinal: No vomiting, no abdominal pain. Musculoskeletal: As above Allergies: Coded Allergies: cycloserine (Verified Allergy, Severe, anaphlaxsis, 12/29/18) ceftazidime (Unverified Allergy, Mild, Rash, 12/29/18) Uncoded Allergies: live vaccines (Allergy, Unknown, 02/16/18) Home Meds Active Scripts Baclofen (BACLOFEN) 10 Mg Tablet, 2.5 MG PO TID PRN for MUSCLE SPASMS, #10 TAB 0 Refills Prov:VARSHA MICHAUD MD 03/19/18 Ondansetron (ZOFRAN ODT) 4 Mg Tab.rapdis, 4 MG PO every 6 hours PRN for NAUSEA/VOMITING, #15 TAB TAKE 1 TABLET BY MOUTH EVERY 12 HOURS Prov:KVNG DAS DO 01/11/18 Reported Medications Sucroferric Oxyhydroxide (Velphoro) 500 Mg Tab.chew, 1 TAB PO TID 12/29/18 Buprenorphine (BUTRANS) 1 Each Patch.tdwk, 1 EACH TD QWEEK 12/29/18 Dronabinol (MARINOL) 2.5 Mg Capsule, 2.5 MG PO BID, CAPSULE 11/17/18 Mirtazapine (MIRTAZAPINE) 15 Mg Tablet, 15 MG PO AB 11/17/18 Carvedilol (CARVEDILOL) 25 Mg Tablet, 25 MG PO BID, #10 TAB 11/17/18 Torsemide (TORSEMIDE) 100 Mg Tablet, 100 MG PO BID 11/17/18 Famotidine (FAMOTIDINE) 20 Mg Tablet, 20 MG PO BID, TAB 11/17/18 Folic Acid/Vitamin B Comp W-C (NEPHRO-DALI TABLET) 0.8 Mg Tablet, 0.8 MG PO 11/17/18 Ropinirole Hcl (ROPINIROLE HCL) 0.25 Mg Tablet, 0.25 MG PO TID 11/17/18 Clonazepam (CLONAZEPAM) 0.5 Mg Tablet, 0.5 MG PO BID, #6 TAB 11/17/18 Minoxidil (MINOXIDIL) 2.5 Mg Tab, 2.5 MG GT, TAB 11/17/18 Cyclosporine, Modified (GENGRAF) 25 Mg Capsule, 25 MG PO BID, CAPSULE 11/17/18 Amlodipine Besylate (AMLODIPINE BESYLATE) 10 Mg Tablet, 1 TAB PO QDAY, TAB 03/19/18 Lisinopril (LISINOPRIL) 20 Mg Tablet, 20 MG PO BID, TAB 03/19/18 Tizanidine Hcl (TIZANIDINE HCL) 2 Mg Capsule, 2 MG PO Q6H PRN for prn, CAPSULE 02/16/18 Sevelamer Carbonate (RENVELA) 800 Mg Tablet, 2400 MG PO TID 09/10/17 Prednisone 10 Mg Tab (PREDNISONE 10 MG TAB) 10 Mg Tablet, 5 MG PO QDAY, TAB 12/23/16 Past Medical/Surgical History He has chronic leg pain and spasming and working with neurology in [place] to look for help. Plan to get Botox coming up in a month or two. Multiple medications tried, some work temporarily, but none for long. Complicated by the fact that he is peritoneal dialysis with history of kidney transplant in the past that is no longer viable and continued imunosuppression. No fevers or chills. No shortness of breath. Has used Baclofen tonight. Also on Buprenorphine patch. The patch was recently doubled, but because of suppression of bleeding, now back to single patch. Also tried cannabinoids without relief. Has had one round of peritoneal dialysis tonight, usually has 5 rounds of this, but because of pian, have not been able to complete this. Reviewed Nurses Notes: Yes Old Medical Records Reviewed: Yes Smoking Status: Never Smoker Hx Substance Use Disorder: No Hx Alcohol Use: No Constitutional Vital Sign - Last 24 Hours 12/29/18 12/29/18 12/29/18 12/29/18 20:27 20:30 20:37 21:07 Temp 98.4 Pulse 94 96 83 Resp 16 B/P (MAP) 141/107 124/121 (122) Pulse Ox 91 89 88 O2 Delivery Room Air 12/29/18 21:22 Pulse 79 Pulse Ox 87 Intake and Output 12/29/18 12/29/18 12/30/18 15:01 23:01 07:01 Output Total 20 ml Balance -20 ml Physical Exam Moderate distress, vital signs stable, afebrile, pulse ox normal General Appearance: The patient is alert, has no immediate need for airway protection and no current signs of toxicity. Slightly pale appearing, skin warm and dry HEENT: Pupils equal and round no injection. Oropharynx without redness or exudate, mucous membranes are moist Respiratory: Chest is non tender, lungs are clear to auscultation. Cardiac: regular rate and rhythm Gastrointestinal: Abdomen is soft and non tender, no masses, bowel sounds normal. Musculoskeletal: Neck: Neck is supple and non tender. Back: There is no tenderness on palpation of the midline. There is no tenderness over the palpation of the paraspinous muscles, there is no CVA tenderness Extremities have full range of motion and are non tender. Skin: No rashes or lesions. DIFFERENTIAL DIAGNOSIS: After history and physical exam differential diagnosis was considered for back pain including but not limited to muscular pain, herniated disc, spine fracture, intra-abdominal causes and urinary tract infection. Medical Decision Making Data Points Result Diagram: 12/29/18204012/29/182040 Laboratory Hematology Test 12/29/18 20:41 12/29/18 20:43 Red Blood Count 5.17 M/uL (4.00-5.60) Mean Corpuscular Volume 87.8 fL (80.0-96.0) Mean Corpuscular Hemoglobin 29.3 pg (26.0-33.0) Mean Corpuscular Hemoglobin Concent 33.3 g/dL (32.0-36.0) Red Cell Distribution Width 16.0 % (11.5-14.5) Mean Platelet Volume 7.9 fL (7.2-11.1) Neutrophils (%) (Auto) 75.3 % (39.4-72.5) Lymphocytes (%) (Auto) 18.2 % (17.6-49.6) Monocytes (%) (Auto) 5.4 % (4.1-12.4) Eosinophils (%) (Auto) 0.5 % (0.4-6.7) Basophils (%) (Auto) 0.6 % (0.3-1.4) Nucleated RBC Relative Count (auto) 0.4 /100WBC Neutrophils # (Auto) 9.0 K/uL (2.0-7.4) Lymphocytes # (Auto) 2.2 K/uL (1.3-3.6) Monocytes # (Auto) 0.7 K/uL (0.3-1.0) Eosinophils # (Auto) 0.1 K/uL (0.0-0.5) Basophils # (Auto) 0.1 K/uL (0.0-0.1) Nucleated RBC Absolute Count (auto) 0.04 K/uL Erythrocyte Sedimentation Rate 10 mm/HOUR (0-15) Sodium Level 137 mmol/L (137-145) Potassium Level 5.3 mmol/L (3.5-5.0) Chloride Level 91 mmol/L (98-107) Carbon Dioxide Level 28 mmol/L (22-30) Blood Urea Nitrogen 71 mg/dl (9-21) Creatinine 14.60 mg/dl (0.66-1.25) Glomerular Filtration Rate Calc 4.2 Random Glucose 91 mg/dl (75-110) Lactate 1.0 mmol/L (0.7-2.1) Calcium Level 9.1 mg/dl (8.4-10.2) Total Bilirubin 0.3 mg/dl (0.2-1.3) Aspartate Amino Transf (AST/SGOT) 29 U/L (0-35) Alanine Aminotransferase (ALT/SGPT) 41 U/L (0-56) Alkaline Phosphatase 59 U/L (0-126) C-Reactive Protein < 0.5 mg/dl (<1.0) Total Protein 6.6 g/dl (6.3-8.2) Albumin 3.9 g/dl (3.5-5.0) Urine Color Yellow Urine Clarity Clear Urine pH 6.0 pH (4.8-9.5) Urine Specific [place] 1.012 Urine Protein 100 mg/dL (NEGATIVE) Urine Glucose (UA) Negative mg/dL (NEGATIVE) Urine Ketones Negative mg/dL (NEGATIVE) Urine Blood Small (NEGATIVE) Urine Nitrite Negative (NEGATIVE) Urine Bilirubin Negative (NEGATIVE) Urine Urobilinogen Negative mg/dL (0.2-1.9) Urine Leukocyte Esterase Negative (NEGATIVE) Urine RBC 5 /HPF (0-2/HPF) Urine WBC 1 /HPF (0-5/HPF) Urine Squamous Epithelial Cells Few /LPF (</=FEW) Urine Bacteria Negative /HPF (NONE-FEW) Urine Hyaline Casts Few /LPF (NONE-FEW) Urine Mucus None /HPF (NONE-FEW) Chemistry Test 12/29/18 20:41 12/29/18 20:43 White Blood Count 12.0 k/uL (4.5-11.0) Red Blood Count 5.17 M/uL (4.00-5.60) Hemoglobin 15.1 g/dL (14.0-18.0) Hematocrit 45.4 % (42.0-52.0) Mean Corpuscular Volume 87.8 fL (80.0-96.0) Mean Corpuscular Hemoglobin 29.3 pg (26.0-33.0) Mean Corpuscular Hemoglobin Concent 33.3 g/dL (32.0-36.0) Red Cell Distribution Width 16.0 % (11.5-14.5) Platelet Count 261 K/uL (150-450) Mean Platelet Volume 7.9 fL (7.2-11.1) Neutrophils (%) (Auto) 75.3 % (39.4-72.5) Lymphocytes (%) (Auto) 18.2 % (17.6-49.6) Monocytes (%) (Auto) 5.4 % (4.1-12.4) Eosinophils (%) (Auto) 0.5 % (0.4-6.7) Basophils (%) (Auto) 0.6 % (0.3-1.4) Nucleated RBC Relative Count (auto) 0.4 /100WBC Neutrophils # (Auto) 9.0 K/uL (2.0-7.4) Lymphocytes # (Auto) 2.2 K/uL (1.3-3.6) Monocytes # (Auto) 0.7 K/uL (0.3-1.0) Eosinophils # (Auto) 0.1 K/uL (0.0-0.5) Basophils # (Auto) 0.1 K/uL (0.0-0.1) Nucleated RBC Absolute Count (auto) 0.04 K/uL Erythrocyte Sedimentation Rate 10 mm/HOUR (0-15) Glomerular Filtration Rate Calc 4.2 Lactate 1.0 mmol/L (0.7-2.1) Calcium Level 9.1 mg/dl (8.4-10.2) Total Bilirubin 0.3 mg/dl (0.2-1.3) Aspartate Amino Transf (AST/SGOT) 29 U/L (0-35) Alanine Aminotransferase (ALT/SGPT) 41 U/L (0-56) Alkaline Phosphatase 59 U/L (0-126) C-Reactive Protein < 0.5 mg/dl (<1.0) Total Protein 6.6 g/dl (6.3-8.2) Albumin 3.9 g/dl (3.5-5.0) Urine Color Yellow Urine Clarity Clear Urine pH 6.0 pH (4.8-9.5) Urine Specific [place] 1.012 Urine Protein 100 mg/dL (NEGATIVE) Urine Glucose (UA) Negative mg/dL (NEGATIVE) Urine Ketones Negative mg/dL (NEGATIVE) Urine Blood Small (NEGATIVE) Urine Nitrite Negative (NEGATIVE) Urine Bilirubin Negative (NEGATIVE) Urine Urobilinogen Negative mg/dL (0.2-1.9) Urine Leukocyte Esterase Negative (NEGATIVE) Urine RBC 5 /HPF (0-2/HPF) Urine WBC 1 /HPF (0-5/HPF) Urine Squamous Epithelial Cells Few /LPF (</=FEW) Urine Bacteria Negative /HPF (NONE-FEW) Urine Hyaline Casts Few /LPF (NONE-FEW) Urine Mucus None /HPF (NONE-FEW) Urinalysis Test 12/29/18 20:43 Urine Color Yellow Urine Clarity Clear Urine pH 6.0 pH (4.8-9.5) Urine Specific [place] 1.012 Urine Protein 100 mg/dL (NEGATIVE) Urine Glucose (UA) Negative mg/dL (NEGATIVE) Urine Ketones Negative mg/dL (NEGATIVE) Urine Blood Small (NEGATIVE) Urine Nitrite Negative (NEGATIVE) Urine Bilirubin Negative (NEGATIVE) Urine Urobilinogen Negative mg/dL (0.2-1.9) Urine Leukocyte Esterase Negative (NEGATIVE) Urine RBC 5 /HPF (0-2/HPF) Urine WBC 1 /HPF (0-5/HPF) Urine Squamous Epithelial Cells Few /LPF (</=FEW) Urine Bacteria Negative /HPF (NONE-FEW) Urine Hyaline Casts Few /LPF (NONE-FEW) Urine Mucus None /HPF (NONE-FEW) ED Course/Re-evaluation Clinical Indication for ER IV: IV Access ED Course Patient was admitted to an examination room. H&P was done. The differential diagnosis was considered. On clinical examination. Patient has urinary frequency and frequent urination. He has no fever. A urinalysis is sent off as well as other diagnostic studies, which are unremarkable as well as a normal lactate. Patient's creatinine is up to 14.65 different increased from his previous 2 values. Patient is improved with fentanyl and Zofran. Patient's advised to follow-up with his dialysis nurse tomorrow as planned. Patient received a Botox injection to the left leg, which is improved his pain somewhat. Decision to Disposition Date: Dec 29, 2018 Decision to Disposition Time: 21:40 Depart Departure Latest Vital Signs Vital Signs Date Time Temp Pulse Resp B/P (MAP) Pulse Ox O2 Delivery O2 Flow Rate FiO2 12/29/18 21:22 79 87 12/29/18 20:30 124/121 (122) 12/29/18 20:27 98.4 16 Room Air Impression: Primary Impression: Back pain Additional Impressions: Renal failure treated with peritoneal dialysis Muscle spasm of both lower legs Condition: Improved Disposition: HOME OR SELF-CARE Referrals: TOMAS BISHOP MD (PCP) Patient Instructions: Back Pain (ED) Additional Instructions: Follow-up with your dialysis nurse and doctor as soon as possible Problem Qualifiers Primary Impression: Back pain Back pain location: low back pain Chronicity: acute Back pain laterality: unspecified Sciatica presence: without sciatica Qualified Codes: M54.5 - Low back pain KVNG DAS DO Dec 29, 2018 20:32
[2018-12-29] MEDS ORDERED: BUPR1PAT9 TD (20:33)
[2018-12-29] MEDS ORDERED: SUCR500T PO (20:33)
[2018-12-29] MEDS ORDERED: fentaNYL CITR 100 MCG/2 ML AMP IVP ONE (21:00)
[2018-12-29 21:31] LABS: PLATELET COUNT, AUTOMATED 261 K/uL (150-450)
== END 2018-12-29 21:49 | disposition home or self-care (01) ==
LOC: ER 20:40
DX: M54.5 Low back pain (principal); N19 Unspecified kidney failure; M62.838 Other muscle spasm; Z99.2 Dependence on renal dialysis
CPT/HCPCS: 81001; 83605; 85025; 85651; 86140; 96374; 99283; J3010; 82040; 82247; 82310; 82374; 82435; 82565; 82947; 84075; 84132; 84155; 84295; 84450; 84460; 84520